=== PATIENT | male | born 1950 | race Caucasian/White ===

== ENCOUNTER 2019-09-13 16:11 | Inpatient (IN) | payer OTHER, SELFPAY ==
[2019-09-13] VITALS (12 sets, daily range): BP systolic 118–155; BP diastolic 69–116; PULSE 94–117; RESP 18–31; TEMP 36.4–37; O2SAT 91–100; BMI 29.0; BMI 28.2
--- NOTE | 2019-09-13 16:57 | EKG12_ITS ---
Test Reason : SOB Blood Pressure : / mmHG Vent. Rate : 115 BPM Atrial Rate : 127 BPM P-R Int : 000 ms QRS Dur : 104 ms QT Int : 300 ms P-R-T Axes : 000 -29 127 degrees QTc Int : 415 ms Atrial fibrillation with premature ventricular or aberrantly conducted complexes Nonspecific ST and T wave abnormality Abnormal ECG Confirmed by DOROTA VARGAS, FELISHA ([id number]), deputy editor in chief BENITO HOOD ([id number]) on 09/16/2019 3:53:26 PM Referred By: TELLY Confirmed By:FELISHA RAYA MD
[2019-09-13 17:24] LABS: Anion Gap 8 (5-15); BUN 34 mg/dL (7-18); BUN/Creat Ratio 20.5 RATIO (10-20); Calcium,Total 9.4 mg/dL (8.5-10.1); Chloride 108 mmol/L (98-107); Creatinine, Serum 1.66 mg/dL (0.70-1.30); EST Glomerular Filtration Rate 44 mL/min (>60); Est Glom Filt Rate - Afr Amer 53 mL/min (>60); Estimated Creatinine Clearance 43.98 ml/min; Glucose 136 mg/dL (74-106); Sodium Level 140 mmol/L (136-145)
[2019-09-13 17:25] LABS: Absolute Lymphocyte Count 1.29 X10^3/uL (0.83-4.51); Absolute Neutrophil Count 11.4 X10^3/uL (2.0-7.7); Basophil# 0.03 X10^3/uL; Basophil% 0.2 % (0-1); Eosinophil# 0.01 X10^3/uL; Eosinophils% 0.1 % (0-5); Hematocrit 43.5 % (40-54); Hemoglobin 13.9 g/dL (13.0-16.5); Lymphocyte # 1.29 X10^3/ul (4.0); Lymphocyte % 9.3 % (19-41); Mean Corpuscular Hgb 30.9 pg (27.0-32.0); Mean Corpuscular Volume 96.7 fL (80-94); Mean Platelet Vol. 11.5 fl (6.2-12.0); Monocyte# 0.96 X10^3/uL; NRBC Flagged by Analyzer 0 % (0-5); Neutrophil # 11.44 X10^3/uL (2.7-7.7); Neutrophil % 82.9 % (47-70); Platelet Count 273 K/mm3 (150-450); RBC Distribution Width CV 14.4 % (11.6-14.6); RBC Distribution Width SD 51.4 fl (35.1-43.9); White Blood Count 13.8 K/mm3 (4.4-11.0)
--- NOTE | 2019-09-13 17:25 | RAD_ITS ---
STUDY: X-RAY CHEST REASON FOR EXAM: Male, 68 years old. SOB for 12 weeks TECHNIQUE: Single AP portable view of the chest on 2 images. COMPARISON: None. FINDINGS: The lungs are under expanded. There is ill-defined density at the bases and loss of definition of the diaphragms, likely a combination of volume loss/atelectasis and very small pleural effusions. Infection is difficult to exclude. There is mild cardiac enlargement. Normal mediastinum. Normal visualized upper lobe pulmonary arteries. Normal visualized aortic arch and descending thoracic aorta. There are multilevel degenerative changes of the visualized thoracic spine. Normal visualized ribs, clavicles, and shoulders. There is no demonstrated abnormality of the visualized soft tissue structures of the upper abdomen. RAD/Chest 1 View (Portable) IMPRESSION: 1. X-ray examination of the chest degraded by poor inspiratory effort with crowding. 2. Subsegmental airspace disease and small pleural effusions at the bilateral lung bases. Infection not excluded. 3. Mild cardiac enlargement. The upper lobe pulmonary vasculature is normal, but the basilar pulmonary vascular markings are difficult to evaluate. Electronically Signed: Justin Ludwig MD at 17:41 EDT , Service support ,
--- NOTE | 2019-09-13 17:42 | ED.RN ---
REMAINS AT BEDSIDE, PT HAS DIFFICULTY MAKING SELF UNDERSTOOD, DIFFICULTY FORMING WORDS. INTERPRETS.
[2019-09-13 17:50] LABS: BNP,B-Type NATRIURETIC PEPTIDE 898.6 pg/mL (0-100)
--- NOTE | 2019-09-13 17:55 | ED.DCSUM_ITS ---
- ER Visit Summary Date of Service: 09/13/19 Chief Complaint: Shortness of breath History of Present Illness: The patient is a 68 M presenting with shortness of breath. states this has been ongoing for the past couple of weeks but worsened significantly on Friday. He has had shortness of breath with exertion. He denies chest pain. He has a mild cough. He denies fever. states he has had difficulty sleeping due to his shortness of breath. He was seen by his primary care physician today and advised to come to the ED. He also complains of increasing lower extremity swelling. He has a history of diabetes and hypercholesterolemia. He is not a smoker. Physical Examination: Vitals are stable. Patient is afebrile. Alert no acute distress. HEENT exam is unremarkable. Neck is supple. Lungs are diminished bilaterally. Heart is irregularly irregular Abdomen is soft nontender nondistended. Extremities symmetric edema Skin is warm and dry. No focal neurologic deficit. Remainder of exam is unremarkable. Emergency Department Course and Treatment: EKG is A. fib rate of 115. CBC shows a white count of 13.8. Chemistry shows glucose 136, BUN 34, creatinine 1.66. Troponin 0.241. BNP 898. Patient was given aspirin, Cardizem. He remains chest pain-free in the ED. Discussed with Dr. Conrad and the hospitalist for admission. Disposition: Admission Impression: New onset CHF, new onset A. fib This note was generated with [employer] dictation software. It may contain incorrect words, spelling, and punctuation that were not noted in review of the chart prior to signing ED Disposition - Plan for ED Patient: Referrals: Terence Joyce DO [Primary Care Provider] -
[2019-09-13] MEDS: Aspirin 325 MG Tablet PO (18:07)
[2019-09-13] MEDS: dilTIAZem 25 MG/5 ML Vial 10 MG IV BOLUS (18:07)
--- NOTE | 2019-09-13 18:30 | ECHOD_ITS ---
Reason For Study: CHF Procedure This was a 2D Doppler, Color Flow transthoracic echocardiogram. Exam performed portable in patient room. Left Ventricle Mildly dilated left ventricle. The estimated ejection fraction is 15 %. Unable to assess diastolic dysfunction due to arrhythmia. There is severe global hypokinesis of the left ventricle. Right Ventricle Normal RV size. Normal systolic function. Atria The left atrium is moderately enlarged. The right atrium is mildly enlarged. Mitral Valve Normal mitral valve. Mild (1+) eccentric mitral valve insufficiency. Tricuspid Valve Normal tricuspid valve. Moderate (2+) tricuspid valve insufficiency. Pulmonary artery systolic pressure is 65 mmHg. Moderate pulmonary hypertension. Aortic Valve Trisinus/trileaflet aortic valve. Mild focal aortic valve calcification. Peak aortic valve gradient 23 mmHg. Mean aortic valve gradient 14 mmHg. Mild to moderate aortic stenosis. Mild (1+) eccentric aortic valve insufficiency. Pulmonic Valve Normal pulmonic valve. Mild (1+) pulmonic valve insufficiency. Great Vessels Normal aortic root. The pulmonary artery is normal size. Inferior vena cava collapse with respiration. Pericardium/Pleural No pericardial effusion. Small left pleural effusion. MMode/2D Measurements & Calculations LVIDd: 5.8 cm IVSd: 0.95 cm LVOT diam: 2.0 cm LVIDs: 5.2 cm LVPWd: 0.88 cm LVOT area: 3.1 cm2 RVDd: 3.3 cm FS: 10.1 % Ao root diam: 3.6 cm LAV(MOD-bp): 98.4 ml LVAd ap4: 40.4 cm2 LAV(MOD-bp) Indexed: 46.9 ml/m2 EDV(MOD-sp4): 136.5 ml LAV(MOD-sp2): 121.2 ml EDV(sp4-el): 142.4 ml LAV(MOD-sp4): 74.0 ml LVAs ap4: 34.3 cm2 ESV(MOD-sp4): 103.8 ml ESV(sp4-el): 109.2 ml EF(MOD-sp4): 23.9 % EF(sp4-el): 23.3 % SV(MOD-sp4): 32.7 ml SV(sp4-el): 33.2 ml LA A4 area: 25.0 cm2 LA dimension(2D): 5.7 cm RA A4 area: 21.6 cm2 Doppler Measurements & Calculations MV E max lee: 135.6 cm/sec Ao V2 max: 236.8 cm/sec LV V1 max: 73.0 cm/sec Ao max P.9 mmHg LV V1 max P.2 mmHg Ao V2 mean: 179.6 cm/sec LV V1 mean P.1 mmHg Ao mean P.2 mmHg LV V1 mean: 49.4 cm/sec Ao V2 VTI: 35.1 cm LV V1 VTI: 11.2 cm FELISHA(I,D): 0.98 cm2 FELISHA(V,D): 0.95 cm2 SV(LVOT): 34.5 ml PA V2 max: 119.6 cm/sec PI end-d lee: 148.6 cm/sec TR max lee: 390.7 cm/sec TR max P.2 mmHg Interpretation Summary Mildly dilated left ventricle. The estimated ejection fraction is 15 %. There is severe global hypokinesis of the left ventricle. The left atrium is moderately enlarged. Mean aortic valve gradient 14 mmHg. Moderate pulmonary hypertension. Unable to assess diastolic dysfunction due to arrhythmia. Ordering Physician: Chi Conrad Referring Physician: MANISH SUTTON Performed By: Patricia Tobar, PATRICA, RVT
--- NOTE | 2019-09-13 18:32 | HP.PCM_ITS ---
History of Present Illness Date of Admission: 09/13/19 Chief Complaint: Shortness of breath, lower extremity swelling. The patient is a 68 year old M with a past medical history of diabetes and high cholesterol. He was admitted through the ED on 09/13/2019 with a complaint of shortness of breath and lower extremity edema for the past few days prior to admission. He had associated orthopnea and PND but denied any chest pain, nausea vomiting or diarrhea. Shortness of breath worsened with exertion. He has not had such symptoms in the past. He denied any fever chills or cough. Review of symptoms otherwise negative. On admission in the ED, heart rate was initially 117 but came down to 97. Vitals were otherwise stable. He was saturating at 97% on 2 L of oxygen. Chemistry showed creatinine of 1.66 with initial troponin of 0.241 and BNP of 898.6. CBC showed white cell count of 13.8 and hemoglobin of 13.9 with platelets of 273. Chest x-ray showed segmental airspace disease and small pleural effusions at the bilateral lung bases with mild cardiac enlargement. EKG done on admission showed A. fib with RVR. He has been admitted to be managed for acute heart failure of unknown EF and A. fib with RVR. [] Past Medical History Allergies No Known Allergies Allergy (Verified 09/13/19 16:12) Home Medications: Ambulatory Orders Medication Instructions Recorded Metformin HCl [Glucophage] 500 mg PO DAILY 09/13/19 Pravastatin [Pravachol] 40 mg PO DAILY 09/13/19 Surgical History: no surgical history Psychiatric History: No pertinent psych hx Lives: Spouse/ Significant Other Smoking Status: Never smoker Alcohol: None Drugs: None - *Family History Maternal History Items: No pertinent history Paternal History Items: No pertinent history Review of Systems Constitutional: Denies: Anorexia, Chills, Fever, Malaise, Weakness Eyes: Denies: Blurred vision HEENT: Denies: Head Aches, Sinus Congestion, Sinus Drainage Cardiovascular: Reports: Edema, Orthopnea, Paroxysmal Noc. Dyspnea. Denies: Chest Pain, Chest Tightness, Heaviness, Light Headedness, Palpitations, Syncope Respiratory: Reports: Shortness of Breath, Shortness of breath at rest, Shortness of breath upon exertion. Denies: Cough, Sputum production, Wheezing Gastrointestinal: Denies: Abdominal Pain, Nausea, Vomiting Genitourinary: Denies: Dysuria Musculoskeletal: Denies: Joint Pain, Joint Tenderness Skin: Denies: Rash, Wounds Neurological: Denies: Numbness, Tingling, Focal weakness Psychiatric: Denies: Anxiety, Depression, Homicidal Ideations, Suicidal Ideations Hematologic/ Lymphatic: Denies: Easy Bruising, Easy Bleeding VTE Information - Inpt Only VTE Present on Admission: No VTE Pharm Prophylaxis ordered?: Yes - Physical Exam Vitals/I&O's: Vital Signs Temp Pulse Resp BP Pulse Ox 97.8 F 97 18 131/109 H 97 09/13/19 18:09 09/13/19 18:09 09/13/19 18:09 09/13/19 18:27 09/13/19 18:09 Oxygen Flow Rate (L/min) 2 Oxygen Delivery Method Nasal Cannula Weight: 202 lb 2.622 oz Body Mass Index (BMI) 29.0 General: Alert, Oriented x3, Cooperative, - - flat affect HEENT: Atraumatic, PERRLA, EOMI, Normocephalic Oral: Dry Mucosa Neck: Supple, No JVD, Negative Carotid Bruits Lungs: - - decreased breath sounds bibasally, no wheezes or crackles. on 2L of oxygen by nasal canula Cardiovascular: Normal S1, Normal S2, Irregular Rate - AFib Abdomen: Bowel Sounds Present, Soft, Non Tender Extremities: No clubbing, No cyanosis, Edema - +2 LE pitting edema bilaterally Skin: No rashes, No breakdown Musculoskeletal: No Tenderness to Palpation of Joints or Extremities Lymphatic: No Cervical, Supraclavicular, or Inguinal Adenopathy Neurological: Cranial nerves II-XII grossly intact, Neuro grossly intact, Motor Exam 5/5 strength throughout Psych/Mental Status: Normal Affect, Appropriate, Alert and oriented to time, place, person, mood and affect Laboratory Results 09/13/19 16:55: WBC 13.8 H, RBC 4.50 L, Hgb 13.9, Hct 43.5, MCV 96.7 H, MCH 30.9, MCHC 32.0, RDW Std Deviation 51.4 H, RDW Coeff of Jamshid 14.4, Plt Count 273, MPV 11.5, Immature Gran % (Auto) 0.500, Neut % (Auto) 82.9 H, Lymph % (Auto) 9.3 L, [place] % (Auto) 7.0, Eos % (Auto) 0.1, Baso % (Auto) 0.2, Absolute Neuts (auto) 11.4 H, Absolute Lymphs (auto) 1.29, Nucleated RBC % 0 09/13/19 16:55: Sodium 140, Potassium 4.0, Chloride 108 H, Carbon Dioxide 24.0, Anion Gap 8, BUN 34 H, Creatinine 1.66 H, Estim Creat Clear Calc 43.98, Est GFR (MDRD) Af Amer 53 L, Est GFR (MDRD) Non-Af 44 L, BUN/Creatinine Ratio 20.5 H, Glucose 136 H, Calcium 9.4, Troponin I 0.241 H 09/13/19 16:55: B-Natriuretic Peptide 898.6 H Diagnostic Data Chest X-Ray 09/13/19 17:25 IMPRESSION: 1. X-ray examination of the chest degraded by poor inspiratory effort with crowding. 2. Subsegmental airspace disease and small pleural effusions at the bilateral lung bases. Infection not excluded. 3. Mild cardiac enlargement. The upper lobe pulmonary vasculature is normal, but the basilar pulmonary vascular markings are difficult to evaluate. Electronically Signed: Justin Ludwig MD at 17:41 EDT , Service support , Assessment/Plan 68-year-old male admitted with a complaint of shortness of breath and lower extremity swelling. 1. Acute heart failure of unknown EF * BNP is 89 8. * Admit to PCU with telemetry. * Start on IV lasix drip, per discussion with cardiology. Monitor intake and output. Fluid restriction 2500 cc daily. 2D echo ordered and pending. Will check TSH. * Cardiology consulted. * 2. Afib with RVR * Heart rate on admission was 117 but at time of review heart rate was down in the 90s. * Will give a dose of therapeutic dose of Lovenox. * [id number] score is ~ 3 * cardiology consulted; Start Coreg 3.125mg bid 3. Elevated troponins * Short troponin 0 0.241. Could be due to troponin leak from heart failure as well. * We will cycle troponins times 2 more * Sublingual nitroglycerin as needed. P.o. aspirin 81 mg daily. * Cardiology consulted. * 4. Acute hypoxic respiratory insufficiency * On 2 L of oxygen by nasal cannula. Titrate oxygen to maintain saturation above 90%. * 5.IVY: Cr is 1.66. No baseline available. WIll trend Cr 5. Diabetes mellitus: Hold metformin. ISS. Accuchecks ACHS. 6. Hyperlipidemia: on statin DVT prophylaxis; lovenox Code status: full code * Patient counseled extensively about different types of CODE STATUS including full code, DNR CCA and DNR CCA. Patient elects to be full code. Total [id number] time 16 minutes. Inpatient E&M: 99654 Init Hosp L3 Procedures: 54730 Advncd Care Plan 30 Min
--- NOTE | 2019-09-13 18:33 | CON.PCM_ITS ---
Reason for Consult Date of Consultation: 09/13/19 Reason for Consultation: Shortness of breath History of Present Illness: The patient is a 68 year old M with a previous history of diabetes mellitus and hypercholesterolemia who presented to the emergency room today. He has been complaining of shortness of breath which has been going on over the last few weeks. He is also noted pedal edema and inability to lie down flat when he goes to bed. He cannot say for sure whether he has had any weight gain. He however categorically denies any chest pain, or neck arm or jaw discomfort suggest angina. He also is not sure whether he has had some palpitations but occasionally he does feel an irregular heartbeat. In the emergency room he was evaluated and noted to be in atrial fibrillation with a rapid ventricular response rate after the EKG was faxed to me. He has had no dizziness or diaphoresis no near syncope or syncope. He has been compliant with his medications. [] Past Medical History Allergies/Adverse Reactions: Allergies No Known Allergies Allergy (Verified 09/13/19 16:12) Home Medications: Ambulatory Orders Medication Instructions Recorded Metformin HCl [Glucophage] 500 mg PO DAILY 09/13/19 Pravastatin [Pravachol] 40 mg PO DAILY 09/13/19 Surgical History: no surgical history Smoking Status: Never smoker Alcohol: None Drugs: None Review of Systems - Review of Systems General: Denies: Fever, Night Sweats, Fatigue HEENT: Denies: Vision Change Cardiovascular: Reports: Shortness of Breath, Orthopnea, PND, Peripheral Edema. Denies: Chest Discomfort, Palpitations, Lightheadedness, Dizziness, Near Syncope, Syncope Respiratory: Reports: Cough. Denies: Sputum Production, Hemoptysis Gastrointestinal: Denies: Hematemesis, Hematochezia, Melena Genitourinary: Denies: Dysuria, Hematuria Muscoloskeletal: Denies: Myalgias Skin: Denies: Rash Neurological: Denies: Dizziness Psychiatric: Denies: Anxiety Endocrine: Denies: Unexplained Weight Loss Hematologic/ Lymphatic: Denies: Anemia Subjectve: Pleasant gentleman in mild respiratory distress Objective: Vital Signs Temp Pulse Resp BP Pulse Ox 97.8 F 97 18 131/109 H 97 09/13/19 18:09 09/13/19 18:09 09/13/19 18:09 09/13/19 18:27 09/13/19 18:09 Oxygen Flow Rate (L/min) 2 Oxygen Delivery Method Nasal Cannula Weight: 202 lb 2.622 oz Body Mass Index (BMI) 29.0 General: Awake, Alert, Oriented x 3 HEENT: PERRL, EOMI, Sclera Non Icteric Neck: Supple, Good ROM, No Lymph Node Enlargement Lungs: Diminished Germain Bases Cardiovascular: Irregular Rhythm, Normal S1, Normal S2, No Murmurs, No Rubs, No Gallops Vascular: No Carotid Bruits, Normal Femoral Pulses, Normal Radial Pulses, Normal Dorsalis Pedal Pulse, Normal Posterior Tibial Pulses Abdomen: Bowel Sounds Present, Soft, Non Tender, No HSM, No Organomegaly Extremities: No Cyanosis, No Clubbing, Bilateral Edema +2 Musculoskeletal: No Erythema Skin: No Rashes Lymphatic: No Lymph Node Enlargement Neurological: No Focal Motor or Sensory Deficit Psych/Mental Status: Appropriate 09/13/19 16:55: WBC 13.8 H, RBC 4.50 L, Hgb 13.9, Hct 43.5, MCV 96.7 H, MCH 30.9, MCHC 32.0, Plt Count 273, MPV 11.5, Immature Gran % (Auto) 0.500, Neut % (Auto) 82.9 H, Lymph % (Auto) 9.3 L, [place] % (Auto) 7.0, Eos % (Auto) 0.1, Baso % (Auto) 0.2, Absolute Neuts (auto) 11.4 H, Nucleated RBC % 0 09/13/19 16:55: Sodium 140, Potassium 4.0, Chloride 108 H, Carbon Dioxide 24.0, Anion Gap 8, BUN 34 H, Creatinine 1.66 H, Est GFR (MDRD) Af Amer 53 L, Est GFR (MDRD) Non-Af 44 L, BUN/Creatinine Ratio 20.5 H, Glucose 136 H, Calcium 9.4, Troponin I 0.241 H 09/13/19 16:55: B-Natriuretic Peptide 898.6 H Rhythm: EKG: Atrial fibrillation with a controlled ventricular response rate and occasional premature ventricular complexes ECHO: Stress Test: Cardiac Cath: PCI: CT Surgery: Holter monitor: EPS: PPM: CXR: Chest CT Scan: Assessment/Plan 1. Acute on chronic congestive heart failure * Patient presents with an initial episode of congestive heart failure but this appears to have been going on for a while. The above is likely secondary to systolic dysfunction. The etiology may be related to coronary disease or tachycardia induced cardiomyopathy. * Would recommend diuresis with intravenous Lasix as a continuous drip * Rate control with carvedilol 3.125 mg twice a day and titrate upwards as appropriate * Daily Lovenox anticoagulation * Echocardiogram to assess left ventricular function * Depending on the results of these tests further recommendations will be made. * 2. Atrial fibrillation with uncontrolled ventricular response rate * The duration of the above is not entirely clear * Will anticoagulate with Lovenox initially * Rate control with beta-bryn * 3. Abnormal cardiac enzymes * Patient has evidence of abnormal cardiac enzymes. This may represent underlying coronary artery disease. * Would continue to evaluate for cardiac enzyme profile * Aspirin to be initiated * Continue high intensity statin * Thank you for allowing me to participate in the care of your patient. Please don't hesitate to call if any issues arise.
[2019-09-13 20:09] LABS: Magnesium 2.4 mg/dL (1.6-2.6)
[2019-09-13] MEDS: Enoxaparin 100 MG/ML Syringe 90 MG SC (20:37)
[2019-09-13] MEDS: 0.9% Saline Lock 10 ML Syringe IV (20:37)
[2019-09-13] MEDS: Pravastatin 40 MG Tablet PO (22:40)
[2019-09-14] VITALS (9 sets, daily range): BP systolic 111–124; BP diastolic 70–83; PULSE 63–120; RESP 16–20; TEMP 36.8–37.3; O2SAT 94–99
[2019-09-14 05:26] LABS: Absolute Lymphocyte Count 1.67 X10^3/uL (0.83-4.51); Absolute Neutrophil Count 8.4 X10^3/uL (2.0-7.7); Basophil# 0.03 X10^3/uL; Basophil% 0.3 % (0-1); Eosinophil# 0.09 X10^3/uL; Eosinophils% 0.8 % (0-5); Hematocrit 41.3 % (40-54); Hemoglobin 13.6 g/dL (13.0-16.5); Lymphocyte # 1.67 X10^3/ul (4.0); Mean Corp Hgb Conc 32.9 g/dL (32-36); Mean Corpuscular Hgb 31.3 pg (27.0-32.0); Mean Corpuscular Volume 94.9 fL (80-94); Mean Platelet Vol. 11.2 fl (6.2-12.0); Monocyte# 0.89 X10^3/uL; NRBC Flagged by Analyzer 0 % (0-5); Neutrophil % 75.5 % (47-70); Platelet Count 246 K/mm3 (150-450); RBC Distribution Width CV 14.3 % (11.6-14.6); RBC Distribution Width SD 49.6 fl (35.1-43.9); Red Blood Count 4.35 M/mm3 (4.6-6.2); White Blood Count 11.1 K/mm3 (4.4-11.0)
[2019-09-14 05:46] LABS: Anion Gap 8 (5-15); BUN 33 mg/dL (7-18); BUN/Creat Ratio 21.3 RATIO (10-20); Calcium,Total 9.3 mg/dL (8.5-10.1); Chloride 105 mmol/L (98-107); Creatinine, Serum 1.55 mg/dL (0.70-1.30); EST Glomerular Filtration Rate 48 mL/min (>60); Est Glom Filt Rate - Afr Amer 58 mL/min (>60); Glucose 118 mg/dL (74-106); Potassium 3.6 mmol/L (3.5-5.1); Sodium Level 139 mmol/L (136-145)
[2019-09-14 06:41] LABS: Bedside Glucose 172 mg/dL (70-110)
[2019-09-14] MEDS: Insulin Lispro 100 UNIT/ML INSULN.PEN SC ×3 (06:45→21:12)
--- NOTE | 2019-09-14 08:17 | PN.CARD_ITS ---
Subjectve: Patient seen and evaluated. He appears to be doing better this morning. Is making urine. Objective: Vital Signs Temp Pulse Resp BP Pulse Ox 98.2 F 102 H 18 121/70 H 99 09/14/19 03:25 09/14/19 07:01 09/14/19 03:25 09/14/19 03:25 09/14/19 03:30 Oxygen Flow Rate (L/min) 2 Oxygen Delivery Method Nasal Cannula Weight: 190 lb 11.198 oz Body Mass Index (BMI) 28.2 Intake and Output for Last 24 Hours 09/12/19 09/13/19 09/14/19 23:59 23:59 23:59 Intake Total 120 / 120 Output Total 200 / 200 2750 / 2750 Balance -80 / -80 -2750 / -2750 General: Awake, Alert, Oriented x 3 HEENT: PERRL, EOMI, Sclera Non Icteric Neck: Supple, Good ROM, No Lymph Node Enlargement Lungs: Diminished Germain Bases Cardiovascular: Regular Rhythm, Normal S1, Normal S2, No Murmurs, No Rubs, No Gallops Vascular: No Carotid Bruits, Normal Femoral Pulses, Normal Radial Pulses, Normal Dorsalis Pedal Pulse, Normal Posterior Tibial Pulses Abdomen: Bowel Sounds Present, Soft, Non Tender, No HSM, No Organomegaly Extremities: No Cyanosis, No Clubbing, Bilateral Edema +1 Musculoskeletal: No Erythema Skin: No Rashes Lymphatic: No Lymph Node Enlargement Neurological: No Focal Motor or Sensory Deficit Psych/Mental Status: Appropriate 09/13/19 16:55: WBC 13.8 H, RBC 4.50 L, Hgb 13.9, Hct 43.5, MCV 96.7 H, MCH 30.9, MCHC 32.0, Plt Count 273, MPV 11.5, Immature Gran % (Auto) 0.500, Neut % (Auto) 82.9 H, Lymph % (Auto) 9.3 L, [place] % (Auto) 7.0, Eos % (Auto) 0.1, Baso % (Auto) 0.2, Absolute Neuts (auto) 11.4 H, Nucleated RBC % 0 09/13/19 16:55: Sodium 140, Potassium 4.0, Chloride 108 H, Carbon Dioxide 24.0, Anion Gap 8, BUN 34 H, Creatinine 1.66 H, Est GFR (MDRD) Af Amer 53 L, Est GFR (MDRD) Non-Af 44 L, BUN/Creatinine Ratio 20.5 H, Glucose 136 H, Calcium 9.4, Troponin I 0.241 H 09/13/19 16:55: B-Natriuretic Peptide 898.6 H 09/13/19 16:55: Magnesium 2.4 09/13/19 20:15: Troponin I 0.229 H 09/13/19 23:07: Troponin I 0.233 H 09/14/19 05:06: WBC 11.1 H, RBC 4.35 L, Hgb 13.6, Hct 41.3, MCV 94.9 H, MCH 31.3, MCHC 32.9, Plt Count 246, MPV 11.2, Immature Gran % (Auto) 0.400, Neut % (Auto) 75.5 H, Lymph % (Auto) 15.0 L, [place] % (Auto) 8.0, Eos % (Auto) 0.8, Baso % (Auto) 0.3, Absolute Neuts (auto) 8.4 H, Nucleated RBC % 0 09/14/19 05:06: Sodium 139, Potassium 3.6, Chloride 105, Carbon Dioxide 26.0, Anion Gap 8, BUN 33 H, Creatinine 1.55 H, Est GFR (MDRD) Af Amer 58 L, Est GFR (MDRD) Non-Af 48 L, BUN/Creatinine Ratio 21.3 H, Glucose 118 H, Calcium 9.3, Troponin I 0.153 H Rhythm: EKG: ECHO: Stress Test: Cardiac Cath: PCI: CT Surgery: Holter monitor: EPS: PPM: CXR: Chest CT Scan: Medical Necessity - Tobacco Use Smoking Status: Never smoker Assessment/Plan 1. Acute on chronic congestive heart failure * Patient presents with an initial episode of congestive heart failure but this appears to have been going on for a while. The above is likely secondary to systolic dysfunction. The etiology may be related to coronary disease or tachycardia induced cardiomyopathy. * Would recommend diuresis with intravenous Lasix as a continuous drip. Patient appears to have achieved negative fluid balance * Rate control with carvedilol 3.125 mg twice a day and titrate upwards as appropriate * Daily Lovenox anticoagulation * Echocardiogram to assess left ventricular function which is pending * Depending on the results of these tests further recommendations will be made. * 2. Atrial fibrillation with uncontrolled ventricular response rate * The duration of the above is not entirely clear * Will anticoagulate with Lovenox initially * Rate control with beta-bryn * 3. Abnormal cardiac enzymes * Patient has evidence of abnormal cardiac enzymes. This may represent underlying coronary artery disease. * Would continue to evaluate for cardiac enzyme profile * Aspirin to be initiated * Continue high intensity statin * Thank you for allowing me to participate in the care of your patient. Please don't hesitate to call if any issues arise.
[2019-09-14] MEDS: Carvedilol 6.25 MG Tablet PO ×2 (09:56→21:04)
--- NOTE | 2019-09-14 10:25 | CASEMGMT ---
BATSHEVA VEGA Face to Face with patient for initial transition planning/care coordination assessment. BATSHVEA VEGA introduced self and role at [facility]. Patient lying in bed, alert and oriented. Patient willing to participate in assessment and is able to answer all questions appropriately. Care providers, pharmacy, and demographics verified. Patient wishes to discharge home, denies need for home health at this time. Patient states he has no further needs or concerns at this time. CM to follow for discharge planning needs that may arise. PCP: [facility] Specialists: Preferred Pharmacy: [facility] Insurance: [employer] Prescription Benefit: none Living Will/HPOA: none LNOK: Living Arrangements: Patient lives with in 2 story home with bed and bath on first floor. 2 steps to enter the home with railing. Patient states he is independent at home. Transportation: buggy or haul driver DME/HHC: Patient states that he has a cane and walker that he does not use. Patient denies previous HHC or SNF. Patient currently on oxygen, will monitor for home oxygen. Patient states he does not have electricity at home. BATSHEVA VEGA explained liquid oxygen and cost associated with liquid oxygen. Disposition Plan: Patient to discharge home with family support and follow-up plans in place. Will monitor for home oxygen. Kirstie BROWNE, RN, CM
[2019-09-14 11:46] LABS: Bedside Glucose 139 mg/dL (70-110)
--- NOTE | 2019-09-14 14:04 | PN_ITS ---
Subjective: Seen and examined. He feels much better today and shortness of breath has improved. He denies any lightheadedness or dizziness, palpitations, nausea vomiting or diarrhea. Review of symptoms otherwise negative. He remains on Lasix drip. Urine output so far today is 5.7 L. Vitals/I&O's: Vital Signs Temp Pulse Resp BP Pulse Ox 99.1 F 106 H 16 123/77 H 97 09/14/19 09:25 09/14/19 09:25 09/14/19 09:25 09/14/19 09:25 09/14/19 09:25 Oxygen Flow Rate (L/min) 2 Oxygen Delivery Method Nasal Cannula Weight: 190 lb 11.198 oz Body Mass Index (BMI) 28.2 Intake and Output for Last 24 Hours 09/12/19 09/13/19 09/14/19 23:59 23:59 23:59 Intake Total 120 / 120 120 / 120 Output Total 200 / 200 5700 / 5700 Balance -80 / -80 -5580 / -5580 General: Alert, Oriented x3, Cooperative, HEENT: Atraumatic, PERRLA, EOMI, Normocephalic Oral: Dry Mucosa Neck: Supple, No JVD, Negative Carotid Bruits Lungs: - - decreased breath sounds bibasally, no wheezes or crackles. on 2L of oxygen by nasal canula Cardiovascular: Normal S1, Normal S2, Irregular Rate - AFib Abdomen: Bowel Sounds Present, Soft, Non Tender Extremities: No clubbing, No cyanosis, Edema - +2 LE pitting edema bilaterally Skin: No rashes, No breakdown Musculoskeletal: No Tenderness to Palpation of Joints or Extremities Lymphatic: No Cervical, Supraclavicular, or Inguinal Adenopathy Neurological: Cranial nerves II-XII grossly intact, Neuro grossly intact, Motor Exam 5/5 strength throughout Psych/Mental Status: Normal Affect, Appropriate, Alert and oriented to time, place, person, mood and affect Laboratory Results 09/13/19 16:55: WBC 13.8 H, RBC 4.50 L, Hgb 13.9, Hct 43.5, MCV 96.7 H, MCH 30.9, MCHC 32.0, RDW Std Deviation 51.4 H, RDW Coeff of Jamshid 14.4, Plt Count 273, MPV 11.5, Immature Gran % (Auto) 0.500, Neut % (Auto) 82.9 H, Lymph % (Auto) 9.3 L, [place] % (Auto) 7.0, Eos % (Auto) 0.1, Baso % (Auto) 0.2, Absolute Neuts (auto) 11.4 H, Absolute Lymphs (auto) 1.29, Nucleated RBC % 0 09/13/19 16:55: Sodium 140, Potassium 4.0, Chloride 108 H, Carbon Dioxide 24.0, Anion Gap 8, BUN 34 H, Creatinine 1.66 H, Estim Creat Clear Calc 43.98, Est GFR (MDRD) Af Amer 53 L, Est GFR (MDRD) Non-Af 44 L, BUN/Creatinine Ratio 20.5 H, Glucose 136 H, Calcium 9.4, Troponin I 0.241 H 09/13/19 16:55: B-Natriuretic Peptide 898.6 H 09/13/19 16:55: Magnesium 2.4 09/13/19 20:15: Troponin I 0.229 H 09/13/19 23:07: Troponin I 0.233 H 09/14/19 05:06: WBC 11.1 H, RBC 4.35 L, Hgb 13.6, Hct 41.3, MCV 94.9 H, MCH 31.3, MCHC 32.9, RDW Std Deviation 49.6 H, RDW Coeff of Jamshid 14.3, Plt Count 246, MPV 11.2, Immature Gran % (Auto) 0.400, Neut % (Auto) 75.5 H, Lymph % (Auto) 15.0 L, [place] % (Auto) 8.0, Eos % (Auto) 0.8, Baso % (Auto) 0.3, Absolute Neuts (auto) 8.4 H, Absolute Lymphs (auto) 1.67, Nucleated RBC % 0 09/14/19 05:06: Sodium 139, Potassium 3.6, Chloride 105, Carbon Dioxide 26.0, Anion Gap 8, BUN 33 H, Creatinine 1.55 H, Estim Creat Clear Calc 47.10, Est GFR (MDRD) Af Amer 58 L, Est GFR (MDRD) Non-Af 48 L, BUN/Creatinine Ratio 21.3 H, Glucose 118 H, Calcium 9.3, Troponin I 0.153 H 09/14/19 06:38: POC Glucose 172 H 09/14/19 11:33: POC Glucose 139 H Diagnostic Data Chest X-Ray 09/13/19 17:25 IMPRESSION: 1. X-ray examination of the chest degraded by poor inspiratory effort with crowding. 2. Subsegmental airspace disease and small pleural effusions at the bilateral lung bases. Infection not excluded. 3. Mild cardiac enlargement. The upper lobe pulmonary vasculature is normal, but the basilar pulmonary vascular markings are difficult to evaluate. Electronically Signed: Justin Ludwig MD at 17:41 EDT , Service support , Current Medications Carvedilol (Coreg) 6.25 mg PO BID [facility] Last Admin: 09/14/19 09:56 Dose: 6.25 mg Documented by: Dextrose (D50w Syringe) 0 gm IV X1 PRN; Protocol PRN Reason: Hypoglycemia Glucagon () 1 mg IM .X1 PRN PRN Reason: Hypoglycemia Furosemide 500 mg/ (Miscellaneous Information) 50 mls @ 1 mls/hr CONT INF .Q50H [facility] Last Admin: 09/13/19 20:40 Dose: 10 mg/hr, 1 mls/hr Documented by: Sodium Chloride () 250 mls @ 15 mls/hr IV .[id number] PRN PRN Reason: Saline Flush Sodium Chloride () 250 mls @ 15 mls/hr IV .[id number] PRN PRN Reason: Additional IVPB Infusion Insulin Human Lispro (Humalog Kwikpen (Bkc)) 0 unit SC ACHS [facility]; Protocol Last Admin: 09/14/19 11:40 Dose: Not Given Documented by: Nitroglycerin (Nitrostat) 0.4 mg SUBLINGUAL Q5M PRN PRN Reason: CARDIAC/CHEST PAIN Ondansetron HCl (Zofran) 4 mg IV Q8H PRN PRN PRN Reason: NAUSEA/VOMITING Pravastatin Sodium (Pravachol) 40 mg PO QHS [facility] Last Admin: 09/13/19 22:40 Dose: 40 mg Documented by: Sodium Chloride () 10 - 40 ml IV UD PRN PRN Reason: SALINE FLUSH Last Admin: 09/13/19 20:37 Dose: 10 ml Documented by: Medical Necessity - Tobacco Use Smoking Status: Never smoker Assessment/Plan 68-year-old male admitted with a complaint of shortness of breath and lower extremity swelling. 1. Acute heart failure with reduced EF * 2D echo showed EF of 15% and unable to assess diastolic dysfunction due to arrhythmia with severe global hypokinesis of the left ventricle and moderately enlarged left atrium. Pulmonary artery systolic pressure is 65 mmHg. Also had mild to moderate aortic stenosis. * Only on IV Lasix drip. Urine output so far is 5.9 L. * TSH was within normal limits. On carvedilol 3.125 mg twice daily. * Cardiology on board. * ulted. * 2. Afib with RVR * On carvedilol 3.125 mg twice daily. Heart rate control has improved. * On therapeutic Lovenox. 3. Elevated troponins * Initial troponin was 0.241 and trended down to 0.153 eventually. * Cardiology on board. Sublingual nitroglycerin and p.o. aspirin 81 mg daily. * Will likely benefit from cardiac cath once shortness of breath improves. * * 4. Acute hypoxic respiratory insufficiency * Due to heart failure, A. fib with RVR and pulmonary hypertension. * On 2 L of oxygen by nasal cannula. Titrate oxygen to maintain saturation above 90%. * 5.IVY: Cr is 1.55 No baseline available. WIll trend Cr 5. Diabetes mellitus: Hold metformin. ISS. Accuchecks ACHS. 6. Hyperlipidemia: on statin DVT prophylaxis; lovenox therapeutic dose Code status: full code * Inpatient E&M: 93467 Subs Hosp L3
[2019-09-14] MEDS: Enoxaparin 100 MG/ML Syringe 90 MG SC ×2 (14:52→23:40)
[2019-09-14 17:05] LABS: Bedside Glucose 227 mg/dL (70-110)
[2019-09-14] MEDS: Atorvastatin Calcium 40 MG Tablet PO (21:04)
[2019-09-14 21:40] LABS: Bedside Glucose 202 mg/dL (70-110)
[2019-09-15] VITALS (14 sets, daily range): BP systolic 91–118; BP diastolic 49–87; PULSE 60–106; RESP 16–18; TEMP 36.7–36.9; O2SAT 95–100
[2019-09-15 05:43] LABS: Absolute Lymphocyte Count 1.92 X10^3/uL (0.83-4.51); Absolute Neutrophil Count 10.8 X10^3/uL (2.0-7.7); Basophil# 0.04 X10^3/uL; Basophil% 0.3 % (0-1); Eosinophil# 0.13 X10^3/uL; Eosinophils% 0.9 % (0-5); Hematocrit 47.3 % (40-54); Hemoglobin 15.4 g/dL (13.0-16.5); Lymphocyte # 1.92 X10^3/ul (4.0); Lymphocyte % 13.7 % (19-41); Mean Corp Hgb Conc 32.6 g/dL (32-36); Mean Corpuscular Hgb 30.7 pg (27.0-32.0); Mean Corpuscular Volume 94.2 fL (80-94); Mean Platelet Vol. 11.2 fl (6.2-12.0); Monocyte# 1.08 X10^3/uL; Monocyte% 7.7 % (0-10); NRBC Flagged by Analyzer 0 % (0-5); Neutrophil # 10.82 X10^3/uL (2.7-7.7); Neutrophil % 77.2 % (47-70); Platelet Count 234 K/mm3 (150-450); RBC Distribution Width CV 14.1 % (11.6-14.6); RBC Distribution Width SD 48.7 fl (35.1-43.9); Red Blood Count 5.02 M/mm3 (4.6-6.2)
[2019-09-15 05:57] LABS: Anion Gap 9 (5-15); BUN 47 mg/dL (7-18); BUN/Creat Ratio 26.7 RATIO (10-20); Calcium,Total 9.1 mg/dL (8.5-10.1); Chloride 101 mmol/L (98-107); Creatinine, Serum 1.76 mg/dL (0.70-1.30); EST Glomerular Filtration Rate 41 mL/min (>60); Est Glom Filt Rate - Afr Amer 50 mL/min (>60); Estimated Creatinine Clearance 41.48 ml/min; Glucose 131 mg/dL (74-106); Potassium 3.1 mmol/L (3.5-5.1); Sodium Level 141 mmol/L (136-145)
--- NOTE | 2019-09-15 06:03 | NUR.TO.PHY ---
of patient, Day Laurent, wants doctor to call her today with updates. She is very upset that she has not heard from the doctor regarding her 's condition. As per , is not capable of relaying doctor's messages to . Day Piersonr [phone]
--- NOTE | 2019-09-15 06:19 | NURSING ---
Patient's , Day, called this nurse this morning and was upset that doctor had not called to update her. She would like called today. [phone]
[2019-09-15 06:46] LABS: Bedside Glucose 142 mg/dL (70-110)
--- NOTE | 2019-09-15 08:31 | PN.CARD_ITS ---
Subjectve: Patient seen and evaluated. Appears to be doing much better this morning. Objective: Vital Signs Temp Pulse Resp BP Pulse Ox 98.0 F 92 18 97/58 L 98 09/15/19 03:00 09/15/19 07:01 09/15/19 03:00 09/15/19 03:00 09/15/19 03:00 Oxygen Flow Rate (L/min) 2 Oxygen Delivery Method Room Air Weight: 177 lb 11.081 oz Body Mass Index (BMI) 28.2 Intake and Output for Last 24 Hours 09/13/19 09/14/19 09/15/19 23:59 23:59 23:59 Intake Total 120 / 120 800 / 800 77.47 / 77.47 Output Total 200 / 200 9400 / 9400 1000 / 1000 Balance -80 / -80 -8600 / -8600 -922.53 / -922.53 General: Awake, Alert, Oriented x 3 HEENT: PERRL, EOMI, Sclera Non Icteric Neck: Supple, Good ROM, No Lymph Node Enlargement Lungs: Clear to auscultation Cardiovascular: Irregular Rhythm, Normal S1, Normal S2, No Murmurs, No Rubs, No Gallops Vascular: No Carotid Bruits, Normal Femoral Pulses, Normal Radial Pulses, Normal Dorsalis Pedal Pulse, Normal Posterior Tibial Pulses Abdomen: Bowel Sounds Present, Soft, Non Tender, No HSM, No Organomegaly Extremities: No Cyanosis, No Clubbing, No edema Musculoskeletal: No Erythema Skin: No Rashes Neurological: No Focal Motor or Sensory Deficit 09/15/19 05:28: WBC 14.0 H, RBC 5.02, Hgb 15.4, Hct 47.3, MCV 94.2 H, MCH 30.7, MCHC 32.6, Plt Count 234, MPV 11.2, Immature Gran % (Auto) 0.200, Neut % (Auto) 77.2 H, Lymph % (Auto) 13.7 L, [place] % (Auto) 7.7, Eos % (Auto) 0.9, Baso % (Auto) 0.3, Absolute Neuts (auto) 10.8 H, Nucleated RBC % 0 09/15/19 05:28: Sodium 141, Potassium 3.1 L, Chloride 101, Carbon Dioxide 31.0, Anion Gap 9, BUN 47 H, Creatinine 1.76 H, Est GFR (MDRD) Af Amer 50 L, Est GFR (MDRD) Non-Af 41 L, BUN/Creatinine Ratio 26.7 H, Glucose 131 H, Calcium 9.1 Rhythm: EKG: ECHO: Stress Test: Cardiac Cath: PCI: CT Surgery: Holter monitor: EPS: PPM: CXR: Chest CT Scan: Medical Necessity - Tobacco Use Smoking Status: Never smoker Assessment/Plan 1. Acute on chronic congestive heart failure * Patient presents with an initial episode of congestive heart failure but this appears to have been going on for a while. The above is likely secondary to systolic dysfunction. The etiology may be related to coronary disease or tachycardia induced cardiomyopathy. * Would recommend diuresis with intravenous Lasix as a continuous drip. This can be discontinued and switched to p.o. Lasix patient appears to have achie latha negative fluid balance * Rate control with carvedilol which has been increased to 6.25 mg twice a day. * Daily Lovenox anticoagulation * Echocardiogram to assess left ventricular function demonstrated that the ejection fraction was approximately 15%. * I would recommend that the patient undergo a left heart catheterization to exclude obstructive coronary disease. . 2. Atrial fibrillation with uncontrolled ventricular response rate * The duration of the above is not entirely clear * Will anticoagulate with Lovenox initially, and switch over to Eliquis at discharge. * Rate control with beta-bryn * 3. Abnormal cardiac enzymes * Patient has evidence of abnormal cardiac enzymes. This may represent underlying coronary artery disease. * Would continue to evaluate for cardiac enzyme profile * Aspirin to be initiated * Continue high intensity statin * Thank you for allowing me to participate in the care of your patient. Please don't hesitate to call if any issues arise. * * The family is insistent that he has to attend a wedding tomorrow so if we can perform a left heart catheterization today. I spoke to the family at length. We will try and see whether we can oblige later today. I am hesitant to send him home on anticoagulation and have to stop it and restart it. * Addendum: Cardiac catheterization performed demonstrated 40% left main coronary artery lesion. Mild LAD disease, Mild left circumflex disease, Dominant large circumflex artery with no significant stenosis. Mild aortic stenosis. Based on the above angiographic findings we will continue with the above determined plan.
[2019-09-15] MEDS: Furosemide 40 MG Tablet PO ×2 (09:05→16:56)
[2019-09-15] MEDS: 0.9% Saline Lock 10 ML Syringe IV (09:05)
[2019-09-15] MEDS: Carvedilol 6.25 MG Tablet PO (09:05)
[2019-09-15] MEDS: 0.9% Normal Saline 1,000 ML 15 ML IV (12:01)
[2019-09-15 12:11] LABS: Bedside Glucose 142 mg/dL (70-110)
--- NOTE | 2019-09-15 12:36 | NURSING ---
Called report to Jackie HERMAN in [employer]
--- NOTE | 2019-09-15 14:40 | PCM.DC ---
- Discharge Diagnoses Current Active Problems: Current Active and Chronic Problems New onset atrial fibrillation (Acute 09/13/19) Non-STEMI (non-ST elevated myocardial infarction) (Acute 09/13/19) Nonrheumatic aortic (valve) stenosis with insufficiency (Acute) Secondary pulmonary arterial hypertension (Acute) Dilated cardiomyopathy (Acute) Acute systolic (congestive) heart failure (Acute) You will use the following diet at home:: Cardiac Your food should be the consistency of: Regular Your liquids should be the consistency of: Regular/Thin Discharge Activity: Return to Normal Activity Weight Bearing Status: Weight bearing as tolerated Call your doctor if you observe: Shortness of breath, Dizziness, Fainting spells, Swelling in the ankles, Chest pain, Increased palpitations (irregular heartbeat) Instructions: Atrial Fibrillation, What Is Atrial Flutter/Atrial Fibrillation?, Heart Failure: Evaluating Your Heart, Heart Failure: Making Changes to Your Diet Additional Instructions: to have repeat BMP in one week to assess potassium level Allergies/Adverse Reactions: Allergies No Known Allergies Allergy (Verified 09/13/19 16:12) Medications to take at Discharge Metformin HCl [Glucophage] 500 mg PO DAILY 09/13/19 Pravastatin [Pravachol] 40 mg PO DAILY 09/13/19 Apixaban [Eliquis] 2.5 mg PO BID #60 tab 09/15/19 Carvedilol [Coreg (Beta Maggie)] 6.25 mg PO BID #60 tab 09/15/19 Furosemide [Lasix] 40 mg PO BID@1000,1800 #60 tab 09/15/19 Potassium Chloride [K-Dur] 20 meq PO BID #60 tab 09/15/19 The following prescriptions were given: Carvedilol [Coreg (Beta Maggie)] 6.25 mg PO BID #60 tab Transmission Status: [facility] Apixaban [Eliquis] 2.5 mg PO BID #60 tab Transmission Status: Pending to [id number] Potassium Chloride [K-Dur] 20 meq PO BID #60 tab Transmission Status: Pending to [id number] Furosemide [Lasix] 40 mg PO BID@1000,1800 #60 tab Transmission Status: Sent to [facility] Primary Care Physician: Terence Joyce DO [Primary Care Provider] - Please follow up with your Primary Care Physician in: 1 week Test Results: Test results from this visit will be discussed in further detail at your follow-up appointment, if applicable. Please Follow Up With: Chi Conrad MD When: 1-2 weeks Proposed Discharge Date: 09/15/19
--- NOTE | 2019-09-15 14:48 | DS.PCM_ITS ---
Discharge Date and Diagnosis - Problem List Patient Problems: Active and Suspected Problems New onset atrial fibrillation (Acute 09/13/19) Non-STEMI (non-ST elevated myocardial infarction) (Acute 09/13/19) Nonrheumatic aortic (valve) stenosis with insufficiency (Acute) Secondary pulmonary arterial hypertension (Acute) Dilated cardiomyopathy (Acute) Acute systolic (congestive) heart failure (Acute) Date of Admission: 09/13/19 Date of Discharge: 09/15/19 - Primary Discharge Diagnosis Acute Problems: Active Problems New onset atrial fibrillation (Acute 09/13/19) Non-STEMI (non-ST elevated myocardial infarction) (Acute 09/13/19) Nonrheumatic aortic (valve) stenosis with insufficiency (Acute) Secondary pulmonary arterial hypertension (Acute) Dilated cardiomyopathy (Acute) Acute systolic (congestive) heart failure (Acute) Hospital Course and Treatment Imaging Results: Diagnostic Data Chest X-Ray 09/13/19 17:25 IMPRESSION: 1. X-ray examination of the chest degraded by poor inspiratory effort with crowding. 2. Subsegmental airspace disease and small pleural effusions at the bilateral lung bases. Infection not excluded. 3. Mild cardiac enlargement. The upper lobe pulmonary vasculature is normal, but the basilar pulmonary vascular markings are difficult to evaluate. Electronically Signed: Justin Ludwig MD at 17:41 EDT , Service support , Interpretation Summary Mildly dilated left ventricle. The estimated ejection fraction is 15 %. There is severe global hypokinesis of the left ventricle. The left atrium is moderately enlarged. Mean aortic valve gradient 14 mmHg. Moderate pulmonary hypertension. Unable to assess diastolic dysfunction due to arrhythmia. cardiology- Dr Conrad Operations: None Procedures: 2-D Echocardiogram, Cardiac catheterization Summary of Care Provided: The patient is a 68 year old M with a past medical history of diabetes and high cholesterol. He was admitted through the ED on 09/13/2019 with a complaint of shortness of breath and lower extremity edema for the past few days prior to admission. He had associated orthopnea and PND but denied any chest pain, nausea vomiting or diarrhea. Shortness of breath worsened with exertion. He has not had such symptoms in the past. He denied any fever chills or cough. Review of symptoms otherwise negative. On admission in the ED, heart rate was initially 117 but came down to 97. Vitals were otherwise stable. He was saturating at 97% on 2 L of oxygen. Chemistry showed creatinine of 1.66 with initial troponin of 0.241 and BNP of 898.6. CBC showed white cell count of 13.8 and hemoglobin of 13.9 with platelets of 273. Chest x-ray showed segmental airspace disease and small pleural effusions at the bilateral lung bases with mild cardiac enlargement. EKG done on admission showed A. fib with RVR. He was admitted to be managed for acute heart failure of unknown EF and A. fib with RVR. He was started on IV lasix drip, and started on PO carvedilol. He was also anticoagulated with SC lovenox. Cardiology was consulted. 2D echo showed EF of 15%, with mildly dilated left ventricle and mild to moderate aortic stenosis with RVSP of 65 mmHg. Patient shortness of breath improved with administration of Lasix. Patient had a cardiac cath on 09/15/2019 which showed mild left anterior descending artery disease with mild left circumflex disease and dominant large circumflex artery with no significant stenosis and mild aortic stenosis. Patient remained stable and symptoms improved significantly. Family wanted patient to be discharged on 09/15/2019 as they wanted him to be at a family wedding on 09/16/2019. Patient remained stable and was discharged home on 09/15/2019 with a prescription for p.o. Lasix 40 mg twice daily, p.o. potassium 20 mEq twice daily, p.o. Eliquis 2.5 mg twice daily and p.o. carvedilol 6.25 mg twice daily. He is to follow-up with his primary care doctor cardiology within 1 week he is to have a follow-up BMP within 1 week. Patient seen and examined prior to discharge. He had no complaints. Shortness of breath had improved. Review systems otherwise negative. Labs and vitals reviewed. Home medications reviewed and reconciled. o/e: Vital Signs Temp Pulse Resp BP Pulse Ox 98.4 F 100 16 118/69 98 09/15/19 12:00 09/15/19 15:00 09/15/19 15:00 09/15/19 15:09/15/19 15:00 General: Alert, Oriented x3, Cooperative, HEENT: Atraumatic, PERRLA, EOMI, Normocephalic Oral: Dry Mucosa Neck: Supple, No JVD, Negative Carotid Bruits Lungs: - - decreased breath sounds bibasally, no wheezes or crackles. on room air. Cardiovascular: Normal S1, Normal S2, Irregular Rate - AFib Abdomen: Bowel Sounds Present, Soft, Non Tender Extremities: No clubbing, No cyanosis, Edema - +1 LE pitting edema bilaterally Skin: No rashes, No breakdown Musculoskeletal: No Tenderness to Palpation of Joints or Extremities Lymphatic: No Cervical, Supraclavicular, or Inguinal Adenopathy Neurological: Cranial nerves II-XII grossly intact, Neuro grossly intact, Motor Exam 5/5 strength throughout Psych/Mental Status: Normal Affect, Appropriate, Alert and oriented to time, place, person, mood and affect Plan is for dc home today as above. Patient Problems: Active and Suspected Problems New onset atrial fibrillation (Acute 09/13/19) Non-STEMI (non-ST elevated myocardial infarction) (Acute 09/13/19) Nonrheumatic aortic (valve) stenosis with insufficiency (Acute) Secondary pulmonary arterial hypertension (Acute) Dilated cardiomyopathy (Acute) Acute systolic (congestive) heart failure (Acute) - Physical Exam Vitals/I&O's: Vital Signs Temp Pulse Resp BP Pulse Ox 98.4 F 99 16 112/70 97 09/15/19 12:00 09/15/19 14:45 09/15/19 14:45 09/15/19 14:45 09/15/19 14:45 Oxygen Flow Rate (L/min) 2 Oxygen Delivery Method Room Air Weight: 177 lb 11.081 oz Body Mass Index (BMI) 28.2 Intake and Output for Last 24 Hours 09/13/19 09/14/19 09/15/19 23:59 23:59 23:59 Intake Total 120 / 120 800 / 800 587.22 / 587.22 Output Total 200 / 200 9400 / 9400 2625 / 2625 Balance -80 / -80 -8600 / -8600 -2036.78 / -2036.78 Laboratory Results 09/14/19 17:02: POC Glucose 227 H 09/14/19 21:11: POC Glucose 202 H 09/15/19 05:28: WBC 14.0 H, RBC 5.02, Hgb 15.4, Hct 47.3, MCV 94.2 H, MCH 30.7, MCHC 32.6, RDW Std Deviation 48.7 H, RDW Coeff of Jamshid 14.1, Plt Count 234, MPV 11.2, Immature Gran % (Auto) 0.200, Neut % (Auto) 77.2 H, Lymph % (Auto) 13.7 L, [place] % (Auto) 7.7, Eos % (Auto) 0.9, Baso % (Auto) 0.3, Absolute Neuts (auto) 10.8 H, Absolute Lymphs (auto) 1.92, Nucleated RBC % 0 09/15/19 05:28: Sodium 141, Potassium 3.1 L, Chloride 101, Carbon Dioxide 31.0, Anion Gap 9, BUN 47 H, Creatinine 1.76 H, Estim Creat Clear Calc 41.48, Est GFR (MDRD) Af Amer 50 L, Est GFR (MDRD) Non-Af 41 L, BUN/Creatinine Ratio 26.7 H, Glucose 131 H, Calcium 9.1 09/15/19 06:40: POC Glucose 142 H 09/15/19 12:00: POC Glucose 142 H Diagnostic Data Chest X-Ray 09/13/19 17:25 IMPRESSION: 1. X-ray examination of the chest degraded by poor inspiratory effort with crowding. 2. Subsegmental airspace disease and small pleural effusions at the bilateral lung bases. Infection not excluded. 3. Mild cardiac enlargement. The upper lobe pulmonary vasculature is normal, but the basilar pulmonary vascular markings are difficult to evaluate. Electronically Signed: Justin Ludwig MD at 17:41 EDT , Service support , Current Medications Atorvastatin Calcium (Lipitor) 40 mg PO QHS [facility] Last Admin: 09/14/19 21:04 Dose: 40 mg Documented by: Carvedilol (Coreg) 6.25 mg PO BID [facility] Last Admin: 09/15/19 09:05 Dose: 6.25 mg Documented by: Dextrose (D50w Syringe) 0 gm IV X1 PRN; Protocol PRN Reason: Hypoglycemia Enoxaparin Sodium (Lovenox) 90 mg SC Q12 [facility] Last Admin: 09/15/19 09:08 Dose: Not Given Documented by: Furosemide (Lasix) 40 mg PO BID@1000,1800 [facility] Last Admin: 09/15/19 09:05 Dose: 40 mg Documented by: Glucagon () 1 mg IM .X1 PRN PRN Reason: Hypoglycemia Sodium Chloride () 250 mls @ 15 mls/hr IV .[id number] PRN PRN Reason: Saline Flush Sodium Chloride () 250 mls @ 15 mls/hr IV .[id number] PRN PRN Reason: Additional IVPB Infusion Sodium Chloride () 1,000 mls @ 0 mls/hr IV .Q0M [facility] Last Infusion: 09/15/19 14:00 Dose: Infused Documented by: Insulin Human Lispro (Humalog Kwikpen (Bkc)) 0 unit SC ACHS [facility]; Protocol Last Admin: 09/15/19 12:02 Dose: Not Given Documented by: Nitroglycerin (Nitrostat) 0.4 mg SUBLINGUAL Q5M PRN PRN Reason: CARDIAC/CHEST PAIN Ondansetron HCl (Zofran) 4 mg IV Q8H PRN PRN PRN Reason: NAUSEA/VOMITING Sodium Chloride () 10 - 40 ml IV UD PRN PRN Reason: SALINE FLUSH Last Admin: 09/15/19 09:05 Dose: 10 ml Documented by: Discharge Activity: Return to Normal Activity Weight Bearing Status: Weight bearing as tolerated Call your doctor if you observe: Shortness of breath, Dizziness, Fainting spells, Swelling in the ankles, Chest pain, Increased palpitations (irregular heartbeat) Home Medications: Medications to take at Discharge Metformin HCl [Glucophage] 500 mg PO DAILY 09/13/19 Pravastatin [Pravachol] 40 mg PO DAILY 09/13/19 Apixaban [Eliquis] 2.5 mg PO BID #60 tab 09/15/19 Carvedilol [Coreg (Beta Maggie)] 6.25 mg PO BID #60 tab 09/15/19 Furosemide [Lasix] 40 mg PO BID@1000,1800 #60 tab 09/15/19 Potassium Chloride [K-Dur] 20 meq PO BID #60 tab 09/15/19 Following Prescrptions Were Given to Patient: Carvedilol [Coreg (Beta Maggie)] 6.25 mg PO BID #60 tab Transmission Status: Sent to [id number] Apixaban [Eliquis] 2.5 mg PO BID #60 tab Transmission Status: Pending to [facility] 2914 Potassium Chloride [K-Dur] 20 meq PO BID #60 tab Transmission Status: Pending to [facility] 2914 Furosemide [Lasix] 40 mg PO BID@1000,1800 #60 tab Transmission Status: Sent to [facility]14 Primary Care Physician: Terence Joyce DO [Primary Care Provider] - Please follow up with your Primary Care Physician in: 1 week Please Follow Up With: Chi Conrad MD When: 1-2 weeks Patient Instructions: What Is Atrial Flutter/Atrial Fibrillation?, Heart Failure: Making Changes to Your Diet, Heart Failure: Evaluating Your Heart, Atrial Fibrillation Disposition: Home Minutes spent on discharge:: 45 Patient Condition:: Stable Medical Necessity - Tobacco Use Smoking Status: Never smoker Meaningful Use Info Meaningful Use Diagnoses (Choose all that apply): CHF - CHF BENJAMIN/ARB ordered at discharge?: No Reason BENJAMIN/ARB not ordered?: Worsening renal disease Documented LVEF (%): 15 Inpatient E&M: 49551 Disch Hosp
--- NOTE | 2019-09-15 14:50 | CASEMGMT ---
BATSHEVA VEAG NOTE: Discharge order is in. Pt will be going home on Eliquis which has been e-scribed to [facility]. Call placed to [facility] and 30-day savings card applied. Pt will have no cost for 1st 30-days. After that, cost will be $563.48. Pt made aware of this and also provided with RX savings card and prescription hope information w/contact #. Pt is to have an appt w/Dr Conrad in 1-2 weeks. Call placed to Megan @ [facility]. She was made aware pt has Delvin Aide/no prescription benefits, that he is being discharged home on Eliquis, that he has been given the 30-day savings card, but that he will need assistance/follow-up with cost of refills or having medication changed to something more affordable. Megan states they will assist pt when he comes in at the follow-up appt. BATSHEVA Bruce, made aware of the above. She is attempting to contact pt's to inform her of pt's discharge and states will review this information with as well. Janis states she will inform of need of appt w/Dr Conrad in 1-2 weeks and that [facility] will assist w/help with cost of Eliquis or discuss orther affordable options. Carl BROWNE RN, CM
--- NOTE | 2019-09-15 17:57 | CL.D_ITS ---
Patient Name: RAJIV WORTHY Study Date: 09/15/2019 Performing: Chi Conrad MD Ht: 70 inches 178 cm : 1950 Wt: 178.8 lbs 81 kg Age: 68 Gender: male BSA: 1.99 PROCEDURE(S) PERFORMED CY73-VBB/COR CLINICAL PROFILE AND INDICATIONS Indications: Cardiomyopathy Heart Failure: NYHA Class: 3, Newly Diagnosed: Yes, Heart Failure Type: Systolic Stress/Imaging Stress/Image Study Performed: No CAD Presentations: No Sxs, no angina. CONCLUSIONS Non obstructive coronary arteries Cardiomyopathy: Dilated Cardiomyopathy: Congestive Aortic Valve Stenosis- Mild RECOMMENDATIONS Medical therapy DESCRIPTION OF PROCEDURE The patient arrived to the procedure lab. The risks and benefits of the procedure as well as a full d escription of our services here and current unavailability of surgical backup were fully explained to the patient and/or their significant other prior to the catheterization. The Timeout was completed, verifying the correct patient and procedure. The patient's procedural site was prepped and draped in the usual fashion. Local anesthetic was given subcutaneously to right radial region with Lidocaine 2% . Using a modified Seldinger technique, arterial access was obtained via the right radial artery, a 6 Fr sheath was inserted. Left Coronary Artery selective angiography was performed in multiple views u sing a 5 Fr. 4.0 [place] catheter. Right Coronary Artery selective angiography was then performed in mu ltiple views using a 5 Fr. JR 5 catheter. LV to AO pullback pressures were then recorded.The arterial sheath was pulled and a TR Band was applied for hemostasis 12cc air inserted CORONARY ANGIOGRAPHY DOMINANCE: Right Dominant LEFT HEART ASSESSMENT Left Ventricular Ejection Fraction: by Echo 15 % Global Hypokinesis - Severe Depressed Left Ventricular systolic function LEFT MAIN: Mild calcification, 30 % Stenosis LEFT ANTERIOR DESCENDING ARTERY: Moderate luminal irregularities up to 50% CIRCUMFLEX ARTERY: Mild luminal irregularities RIGHT CORONARY ARTERY: No significant disease noted VALVE FINDINGS: Aortic Valve Stenosis - mild COMPLICATIONS No Complications PROCEDURE MEDICATIONS Fentanyl 50 mcg IV Versed 1 mg IV Oxygen: 2 L/min via nasal cannula Heparin diluted in 23cc Heparinized saline. Patient given 10cc IA of this solution. 09/15/2019 13:25: 28 Verapamil 2.5mg, Ntg 100mcgs, 2000 units of Heparin diluted in 23cc Heparinized saline. Patient give n 10cc IA of this solution. 09/15/2019 13:25:28 SUMMARY OF HEMODYNAMIC DATA Time AIR REST ECG 13:11:25 AO 92/64 (78) SA 13:27:48 LV 89/3, 5 13:40:41 LV 92/5, 8 13:40:46 LVp 101/6, 8 13:40:56 AOp 93/60 (75) 13:41:01 Signed By Chi Conrad MD On 09/15/2019 17:56:12 Chi Conrad MD
== END 2019-09-15 17:07 | disposition home or self-care (01) | DRG 280 ==
LOC: ED 18:13 → PCU 18:37
PROVIDERS: Admitting Provider Student in an Organized Health Care Education/Training Program; Emergency Provider Emergency Medicine; PCP Family Medicine; Visit Provider Student in an Organized Health Care Education/Training Program
DX: I21.4 Non-ST elevation (NSTEMI) myocardial infarction (principal); I50.23 Acute on chronic systolic (congestive) heart failure; I42.0 Dilated cardiomyopathy; I35.2 Nonrheumatic aortic (valve) stenosis with insufficiency; I27.21 Secondary pulmonary arterial hypertension; I48.91 Unspecified atrial fibrillation; E11.9 Type 2 diabetes mellitus without complications; R09.02 Hypoxemia; E78.5 Hyperlipidemia, unspecified
CPT/HCPCS: 36415; 71045; 80048; 82962; 83735; 83880; 84484; 85025; 93005; 93306; 93454; 96374; 97161; 97166; 99152; 99153; 99285; J7030; A4216; C1769; C1894; J1940; Q9967

== ENCOUNTER → 2019-10-15 10:28 | Outpatient (CLI) | payer OTHER, SELFPAY ==
[2019-10-15 09:38] VITALS: BMI 25.7
[2019-10-15 11:17] LABS: Absolute Lymphocyte Count 1.29 X10^3/uL (0.83-4.51); Absolute Neutrophil Count 4.3 X10^3/uL (2.0-7.7); Basophil# 0.01 X10^3/uL; Basophil% 0.2 % (0-1); Eosinophil# 0.03 X10^3/uL; Eosinophils% 0.5 % (0-5); Hematocrit 46.7 % (40-54); Hemoglobin 15.1 g/dL (13.0-16.5); Lymphocyte # 1.29 X10^3/ul (4.0); Lymphocyte % 20.3 % (19-41); Mean Corp Hgb Conc 32.3 g/dL (32-36); Mean Corpuscular Hgb 30.8 pg (27.0-32.0); Mean Corpuscular Volume 95.1 fL (80-94); Mean Platelet Vol. 11.6 fl (6.2-12.0); Monocyte# 0.74 X10^3/uL; Monocyte% 11.6 % (0-10); NRBC Flagged by Analyzer 0 % (0-5); Neutrophil # 4.28 X10^3/uL (2.7-7.7); Neutrophil % 67.1 % (47-70); Platelet Count 157 K/mm3 (150-450); RBC Distribution Width CV 13.3 % (11.6-14.6); RBC Distribution Width SD 46.2 fl (35.1-43.9); Red Blood Count 4.91 M/mm3 (4.6-6.2); White Blood Count 6.4 K/mm3 (4.4-11.0)
[2019-10-15 11:52] LABS: Anion Gap 9 (5-15); BUN 57 mg/dL (7-18); BUN/Creat Ratio 27.9 RATIO (10-20); Calcium,Total 9.4 mg/dL (8.5-10.1); Chloride 103 mmol/L (98-107); Creatinine, Serum 2.04 mg/dL (0.70-1.30); EST Glomerular Filtration Rate 35 mL/min (>60); Est Glom Filt Rate - Afr Amer 42 mL/min (>60); Glucose 143 mg/dL (74-106); Potassium 4.2 mmol/L (3.5-5.1); Sodium Level 139 mmol/L (136-145)
== END ==
PROVIDERS: PCP Family Medicine; Referring Provider Physician Assistant Medical; Visit Provider Physician Assistant Medical
DX: I42.8 Other cardiomyopathies (principal); I48.91 Unspecified atrial fibrillation
CPT/HCPCS: 36415; 80048; 85025

== ENCOUNTER → 2019-12-17 12:12 | Outpatient (CLI) | payer SELFPAY, OTHER ==
[2019-12-09 09:57] VITALS: BMI 25.9
--- NOTE | 2019-12-17 12:12 | CDU_ITS ---
Reason For Study: BRUIT Rt. Velocities/BP Lt. Velocities/BP Prox CCA 46/15 cm/sec. Prox CCA 62/13 cm/sec. Mid CCA 54/13 cm/sec. Mid CCA 76/20 cm/sec. Dist CCA 57/13 cm/sec. Dist CCA 64/15 cm/sec. Prox ICA 39/14 cm/sec. Prox ICA 50/18 cm/sec. Mid ICA 51/23 cm/sec. Mid ICA 79/22 cm/sec. Dist ICA 66/26 cm/sec. Dist ICA 97/32 cm/sec. Rt. ICA/CCA = 1.2. Lt. ICA/CCA = 1.5. Prox ECA 71/15 cm/sec. Prox ECA 71/13 cm/sec. Rt. Vert. 43/13 cm/sec. Lt. Vert. 29/11 cm/sec. Right Extracranial There is homogeneous, smooth atherosclerotic plaque noted in the right common carotid artery. There is homogeneous, smooth atherosclerotic plaque noted in the right internal carotid artery. There is homogeneous, smooth atherosclerotic plaque noted in the right external carotid artery. Antegrade flow is noted in the right vertebral artery. Left Extracranial There is homogeneous, smooth atherosclerotic plaque noted in the left common carotid artery. There is homogeneous, smooth atherosclerotic plaque noted in the left internal carotid artery. There is homogeneous, smooth atherosclerotic plaque noted in the left external carotid artery. Antegrade flow is noted in the left vertebral artery. Procedure Carotid Duplex 75776. Exam performed in department. Interpretation Summary Minimal smooth plaque at the proximal right internal carotid artery with less than 50% stenosis <50% stenosis right external carotid Minimal smooth plaque at the proximal left internal carotid artery with less than 50% stenosis <50% stenosis left external carotid Patent and antegrade vertebrals bilaterally Ordering Physician: Lucy Johnson Referring Physician: MANISH SUTTON Performed By: Patricia Tobar, RDCS, RVT
--- NOTE | 2019-12-17 12:12 | ECHOL_ITS ---
Reason For Study: CHF Procedure This was a limited 2D transthoracic echocardiogram. Exam performed in department. Left Ventricle Normal LV size. Moderately severe global left ventricular systolic dysfunction. The estimated ejection fraction is 20 %. Right Ventricle Normal RV size. Normal systolic function. Atria The left atrium is mildly enlarged. The right atrium is mildly enlarged. Mitral Valve Normal mitral valve. Tricuspid Valve Normal tricuspid valve. Mild (1+) tricuspid valve insufficiency. Pulmonary artery systolic pressure is 38 mmHg. Aortic Valve Trisinus/trileaflet aortic valve. Mild focal aortic valve calcification. Mild (1+) aortic valve insufficiency. Pulmonic Valve Normal pulmonic valve. Great Vessels Normal aortic root. The pulmonary artery is normal size. Normal inferior vena cava. Pericardium/Pleural No pericardial effusion. MMode/2D Measurements & Calculations LVIDd: 5.1 cm IVSd: 1.4 cm LVOT diam: 2.0 cm LVIDs: 4.4 cm LVPWd: 1.2 cm LVOT area: 3.2 cm2 FS: 12.8 % Ao root diam: 3.6 cm LAV(MOD-bp): 78.1 ml LVAd ap4: 38.3 cm2 LAV(MOD-bp) Indexed: 41.9 ml/m2 EDV(MOD-sp4): 144.6 ml LAV(MOD-sp2): 84.1 ml EDV(sp4-el): 148.1 ml LAV(MOD-sp4): 71.4 ml LVAs ap4: 32.2 cm2 ESV(MOD-sp4): 104.5 ml ESV(sp4-el): 108.9 ml EF(MOD-sp4): 27.8 % EF(sp4-el): 26.5 % SV(MOD-sp4): 40.1 ml SV(sp4-el): 39.2 ml Aortic Valve Planimetry: 1.5 cm2 LA A4 area: 23.4 cm2 RA A4 area: 21.0 cm2 Doppler Measurements & Calculations Ao V2 max: 240.7 cm/sec LV V1 max: 85.5 cm/sec SV(LVOT): 56.9 ml Ao max P.3 mmHg LV V1 max P.9 mmHg Ao V2 mean: 158.1 cm/sec LV V1 mean P.7 mmHg Ao mean P.0 mmHg LV V1 mean: 59.8 cm/sec Ao V2 VTI: 43.5 cm LV V1 VTI: 17.8 cm FELISHA(I,D): 1.3 cm2 FELISHA(V,D): 1.1 cm2 PA V2 max: 117.6 cm/sec PI end-d lee: 132.7 cm/sec TR max lee: 295.6 cm/sec TR max P.9 mmHg Interpretation Summary Normal LV size. Moderately severe global left ventricular systolic dysfunction. The estimated ejection fraction is 20 %. compared to the previous the EF is minimally improved, the pulmonary pressures are improved. Ordering Physician: Lucy Johnson Referring Physician: Terence Joyce Performed By: Madi Story RCS
== END ==
PROVIDERS: PCP Family Medicine; Referring Provider Physician Assistant Medical; Visit Provider Physician Assistant Medical
DX: I42.8 Other cardiomyopathies (principal); R09.89 Other specified symptoms and signs involving the circulatory and respiratory systems
CPT/HCPCS: 93308; 93880

== ENCOUNTER → 2022-06-24 | Outpatient (CLI) | payer OTHER, SELFPAY ==
--- NOTE | 2022-06-24 | IMM_PTH ---
PATIENT: RAJIV WORTHY LOC: [facility] U#:[id number] AGE/SX: 71/M ROOM: RE06/24/[address]: Dr. Hilario Parikh MD : 1950 BED: DIS: 06/24/2022 SPEC #: [id number] RECD: 06/26/22 13:38 STATUS: CINDY REQ #: [id number] ALBA: 06/24/22 00:[address]: Hilario Parikh DEPT: IMMUNOHISTOCHEMISTRY RECD BY: Nany Jenkins ENTERED: 06/26/22 13:38 SP TYPE: IMMUNO OTHR DR: Dr. Terence Joyce, Tissues: E - PROSTATE LEFT F - PROSTATE LEFT Procedures: 34BE12 (add) P40 (add) 34BE12 (initial) PHYSICIAN & INSTITUTION [place] [id number] SPECIMEN INFORMATION: Tissue Source: E - Left prostate, mid, core biopsy, F - Left prostate, base, core biopsy Clinical Info: Elevated PSA Specimen Number: [id number] E & F CPT code: 82168, 43649 x3 METHODOLOGY: Deparaffinized sections of prefer/formalin-fixed tissue or PAP/DQ stained slides are incubated with monoclonal/polyclonal antibodies/oligonucleotide probes. Localization is made via biotin free immunoperoxidase method. Appropriate controls are performed and reacted as expected. Results on target cell population are indicated in the following table: RESULTS: ANTIBODY / CLONE RESULT Block E P40 (BC28) positive 34BE12 (34BE12) positive Block F P40 (BC28) noncontributory 34BE12 (34BE12) noncontributory These tests were developed and their performance characteristics determined by [facility]. They may not have been cleared or approved by the U.S. Food and Drug Administration. The FDA has determined that such clearance or approval is not necessary. The above immunohistochemical/dualISH markers are ordered and reviewed by the Pathologist. INTERPRETATION: E. Left prostate, mid, core biopsy: Focal high-grade prostatic intraepithelial neoplasia (HGPIN). F. Left prostate, base, core biopsy: Focal high-grade prostatic intraepithelial neoplasia (HGPIN). See comment. GEMA:bridget 06/27/2022 Comment: B - IHC is noncontributory as area of HGPIN is not present in the IHC slides. Case has been reviewed in consultation with Dr. Her who concurs with the above diagnosis. IDC:AM
--- NOTE | 2022-06-24 | PROSBIL_PTH ---
PATIENT: RAJIV WORTHY LOC: [facility] U#:[id number] AGE/SX: 71/M ROOM: RE06/24/[address]: Dr. Hilario Parikh MD : 1950 BED: DIS: 06/24/2022 SPEC #: [id number] RECD: 06/24/22 15:00 STATUS: CINDY BARBA #: [id number] ALBA: 06/24/22 00:[address]: Hilario Parikh DEPT: SURGICAL PATHOLOGY RECD BY: Angel Mitchell ENTERED: 06/25/22 10:06 SP TYPE: PROST BX KAREN DR: Dr. Terence Joyce DO Tissues: A - PROSTATE RIGHT B - PROSTATE RIGHT C - PROSTATE RIGHT D - PROSTATE LEFT E - PROSTATE LEFT F - PROSTATE LEFT Procedures: PROSTATE BX HEADER OPERATION: Prostate biopsy PRE-OP DIAGNOSIS: Elevated PSA TISSUE SUBMITTED: A - Right apex, B - Right mid, C - Right base, D - Left apex, E - Left mid, F - Left base MICROSCOPIC DIAGNOSIS A. Right prostate, apex, core biopsy: Prostatic tissue, negative for malignancy. B. Right prostate, mid, core biopsy: Prostatic tissue, negative for malignancy. C. Right prostate, base, core biopsy: Prostatic tissue, negative for malignancy. D. Left prostate, apex, core biopsy: Prostatic tissue, negative for malignancy. E. Left prostate, mid, core biopsy: Focal high-grade prostatic intraepithelial neoplasia (HGPIN). See comment. F. Left prostate, base, core biopsy: Focal high-grade prostatic intraepithelial neoplasia (HGPIN). Focal mild chronic inflammation. See comment. SJ:rg 06/26/2022 COMMENT E. Immunohistochemistry ([id number]) supports the above diagnosis. F. Immunohistochemistry ([id number]) is noncontributory, as area of HGPIN is not present in the IHC slides. Case has been reviewed in consultation with Dr. Her who concurs with the above diagnosis. IDC:AM MICROSCOPIC DESCRIPTION Slides are reviewed. GROSS DESCRIPTION A - Received is one container designated prostate, right apex. The specimen consists of one elongated fragment of light stallings-white soft tissue measuring 1.5 cm in length and 0.1 cm in diameter. The specimen is totally submitted in one cassette. B - Received is one container designated prostate, right mid. The specimen consists of two elongated fragments of light stallings-white soft tissue each measuring 1.1 cm in length and 0.1 cm in diameter. The specimen is totally submitted in one cassette. C - Received is one container designated prostate, right base. The specimen consists of two elongated fragments of light stallings-white soft tissue each measuring 1.1 cm in length and 0.1 cm in diameter. The specimen is totally submitted in one cassette. D - Received is one container designated prostate, left apex. The specimen consists of one elongated fragment of light stallings-white soft tissue measuring 1.3 cm in length and 0.1 cm in diameter. The specimen is totally submitted in one cassette. E - Received is one container designated prostate, left mid. The specimen consists of two elongated fragments of light stallings-white soft tissue each measuring 1.1 cm in length and 0.1 cm in diameter. The specimen is totally submitted in one cassette. F - Received is one container designated prostate, left base. The specimen consists of two elongated fragments of light stallings-white soft tissue each measuring 1.2 cm in length and 0.1 cm in diameter. The specimen is totally submitted in one cassette. / SJ:rg 06/25/2022 TC:5 CPT: G0146
== END | disposition home or self-care (01) ==
LOC: LABSPEC 16:36
PROVIDERS: PCP Family Medicine; Referring Provider Urology; Visit Provider Urology
DX: R97.20 Elevated prostate specific antigen [PSA] (principal)
CPT/HCPCS: 88305; 88341; 88342; G0416

== ENCOUNTER → 2023-02-07 | Outpatient (CLI) | payer SELFPAY, OTHER ==
--- NOTE | 2023-02-07 08:14 | MRI_ITS ---
STUDY: MR PROSTATE GLAND/ PELVIS WITH T WITHOUT CONTRAST REASON FOR EXAM: Male, 72 years old. ELEVATED PSA,,PRIOR NEG BX,PSA 9.8 TECHNIQUE: Standardized fat and water weighted pulse sequences were obtained in all 3 orthogonal planes, pre-and post contrast administration. IV 15ml clariscan was administered for the contrast portion of the examination. COMPARISON: Prior comparison studies are not available for review at this time. FINDINGS: Prostate gland volume/size: 5.93 x 4.54 x 4.23 cm, which is mildly enlarged. Anterior fibromuscular stroma: Normal Peripheral zone: Diffusely heterogeneous and nodular. Central zone: Diffusely heterogeneous and nodular. Transitional zone: Diffusely heterogeneous and nodular. There are 2 lobular intermediate to low signal nodules at the anterior lateral aspect of the right peripheral zone (measuring 1.11 cm) and in the central aspect of the left transitional zone measuring 1.51 cm in diameter, that also demonstrate abnormal diffusion weighted signal and mild to moderate enhancement which is suspicious and concerning for malignancy. The remaining findings are most likely due to benign prostate hyperplasia or nonspecified prostatitis. Prostate capsule: Intact Seminal vesicles: Normal Pelvic sidewall lymphadenopathy: No abnormal lymphadenopathy is present Bony structures: No demonstrated lytic or blastic lesions of the bony structures Normal urinary bladder. Normal visualized small intestine. There are multiple colonic diverticula of the sigmoid colon consistent with chronic diverticulosis. There is no pelvic fluid. There is no pelvic mass lesion or lymphadenopathy. Unremarkable osseous structures. Normal abdominal wall. Small bilateral testicular hydroceles are present, right greater than left. MRI/Pelvis W/WO Contrast IMPRESSION: 1. There are 2 lobular intermediate to low signal nodules at the anterior lateral aspect of the right peripheral zone (measuring 1.11 cm) and in the central aspect of the left transitional zone measuring 1.51 cm in diameter, that also demonstrate abnormal diffusion weighted signal and mild to moderate enhancement which is suspicious and concerning for malignancy. 2. PI-RADS 4: high (clinically significant cancer is likely to be present) 3. The remaining findings are most likely due to benign prostate hyperplasia or nonspecified prostatitis. Reference information: Normal prostate tissue Benign prostatic hypertrophy cancer/tumor - low signal peripheral , transitional, and central zones malignancy appears as bright on DWI and low signal on ADC map Prostate imaging-reporting and data system (PI-RADS) PI-RADS 1: very low (clinically significant cancer is highly unlikely to be present) PI-RADS 2: low (clinically significant cancer is unlikely to be present) PI-RADS 3: intermediate (the presence of clinically significant cancer is equivocal) PI-RADS 4: high (clinically significant cancer is likely to be present) PI-RADS 5: very high (clinically significant cancer is highly likely to be present) PI-RADS X: component of exam technically inadequate or not performed Prostate malignancy distribution: Peripheral zone: 70-80% Transitional zone: 10-20% Central zone: 5% or less Electronically Signed: Fortino Hallman MD at 15:49 EDT ,
[2023-02-07 08:43] LABS: EGFR FINGERSTICK > 60.0000 mL/min (>60)
== END | disposition home or self-care (01) ==
LOC: MRI 07:50
PROVIDERS: PCP Family Medicine; Referring Provider Urology; Visit Provider Urology
DX: R97.20 Elevated prostate specific antigen [PSA] (principal)
CPT/HCPCS: 72197; A9575

== ENCOUNTER → 2023-03-24 | Outpatient (CLI) | payer OTHER, SELFPAY ==
--- NOTE | 2023-03-24 | PROSBIL_PTH ---
PATIENT: RAJIV WORTHY LOC: [facility] U#:[id number] AGE/SX: 72/M ROOM: RE03/24/[address]: Dr. Hilario Parikh MD : 1950 BED: DIS: 03/24/2023 SPEC #: [id number] RECD: 03/25/23 08:22 STATUS: CINDY REJosie #: [id number] ALBA: 03/24/23 00:[address]: Hilario Parikh DEPT: SURGICAL PATHOLOGY RECD BY: Angel Mitchell ENTERED: 03/25/23 08:23 SP TYPE: PROST BX KAREN DR: Dr. Terence Joyce DO Tissues: A - PROSTATE RIGHT B - PROSTATE RIGHT C - PROSTATE RIGHT D - PROSTATE LEFT E - PROSTATE LEFT F - PROSTATE LEFT Procedures: PROSTATE BX HEADER OPERATION: Prostate biopsy PRE-OP DIAGNOSIS: Elevated PSA TISSUE SUBMITTED: A - Right apex, B - Right mid, C - Right base, D - Left apex, E - Left mid, F - Left base MICROSCOPIC DIAGNOSIS A. Right prostate, apex, core biopsy: Benign prostatic tissue. B. Right prostate, mid, core biopsy: Minimal chronic inflammation. C. Right prostate, base, core biopsy: Focal high-grade prostatic intraepithelial neoplasia (HGPIN). D. Left prostate, apex, core biopsy: Mild chronic inflammation. E. Left prostate, mid, core biopsy: Chronic inflammation and focal glandular atrophy. F. Left prostate, base, core biopsy: Focal benign stromal hyperplasia. Minimal chronic inflammation. AM:bridget 03/26/2023 MICROSCOPIC DESCRIPTION Slides are reviewed. GROSS DESCRIPTION A - Received is one container designated prostate, right apex. The specimen consists of one elongated fragment of light stallings-white soft tissue measuring 1.0 cm in length and 0.1 cm in diameter. The specimen is totally submitted in one cassette. B - Received is one container designated prostate, right mid. The specimen consists of two elongated fragments of light stallings-white soft tissue each measuring 1.0 cm in length and 0.1 cm in diameter. The specimen is totally submitted in one cassette. C - Received is one container designated prostate, right base. The specimen consists of two elongated fragments of light stallings-white soft tissue each measuring 1.0 cm in length and 0.1 cm in diameter. The specimen is totally submitted in one cassette. D - Received is one container designated prostate, left apex. The specimen consists of two elongated fragments of light stallings-white soft tissue each measuring 1.0 cm in length and 0.1 cm in diameter. The specimen is totally submitted in one cassette. E - Received is one container designated prostate, left mid. The specimen consists of one elongated fragment of light stallings-white soft tissue measuring 1.5 cm in length and 0.1 cm in diameter. The specimen is totally submitted in one cassette. F - Received is one container designated prostate, left base. The specimen consists of one elongated fragment of light stallings-white soft tissue measuring 2.0 cm in length and 0.1 cm in diameter. The specimen is totally submitted in one cassette. / AM:bridget 03/25/2023 TC:3 CPT: 14435 x6
== END | disposition home or self-care (01) ==
LOC: LABSPEC 16:18
PROVIDERS: PCP Family Medicine; Referring Provider Urology; Visit Provider Urology
DX: R97.20 Elevated prostate specific antigen [PSA] (principal)
CPT/HCPCS: 88305; G0416

== ENCOUNTER 2024-01-13 12:42 | Emergency (ER) | payer OTHER, SELFPAY ==
[2024-01-13 12:42] VITALS: BP 134/108; PULSE 93; RESP 23; TEMP 36.7; O2SAT 100; BMI 27.9
--- NOTE | 2024-01-13 13:13 | EX.ED.DYSGE1 ---
HPI History of Present Illness Chief Complaint: Headache Narrative Narrative: Chief complaint and HPI: Bradycardia. Patient is a 73-year-old male with history of atrial fibrillation on Eliquis, CKD 3, CAD, HTN, DM2, CHF who presents for evaluation of bradycardia. History taken by patient and . Per their report patient has had a mild cough and headache for the past 5 days. He had a regular 6-month checkup with his PCP today and was found to have a pulse in the 30s. Patient was transferred to the ED via EMS. Patient denies any syncope, lightheadedness, chest pain, shortness of breath, abdominal pain, nausea, vomiting, diarrhea, dysuria, bilateral lower extremity swelling or pain. He states he feels at his baseline other than a mild headache. Review of systems: See HPI Medications: As listed on the chart Allergies: As listed on the chart PFSH: Per chart Vital signs: As listed on the chart. Reviewed. Physical exam: Gen: A&O x3, NAD Head: Normocephalic, atraumatic Eyes: No sclera icterus, conjunctiva clear ENT: Moist mucous membranes Neck: Trachea midline, No JVD CV: Irregular rhythm with irregular rate, no murmurs, no peripheral edema Resp: Lungs CTA BL, no w/r/c GI: Abd soft, non-distended, non-tender, no r/r/g Musc: Full ROM, no deformity Skin: Warm, dry Neuro: Alert, oriented, grossly intact, sensation intact Psych: Cooperative, appropriate mood and affect [facility] Medical History Nonobstructive atherosclerosis of coronary artery Longstanding persistent atrial fibrillation Hyperlipidemia Type 2 diabetes mellitus Chronic systolic (congestive) heart failure Non-ischemic cardiomyopathy New onset atrial fibrillation (09/13/19) Non-STEMI (non-ST elevated myocardial infarction) (09/13/19) Nonrheumatic aortic (valve) stenosis with insufficiency Home Medications ?Medication ?Instructions ?Recorded ?Last Taken ?Type metformin 500 mg tablet 500 mg PO BID DM 12/09/19 Unknown History omeprazole 20 mg capsule,delayed 20 mg PO DAILY 04/03/20 Unknown History release apixaban 2.5 mg tablet (Eliquis) 2.5 mg PO BID 04/06/20 Unknown History flaxseed oil 1,000 mg capsule 1,000 mg PO TID 10/27/20 Unknown History ([place]-3 Flaxseed Oil) glucosamine sulfate 500 mg tablet 500 mg PO DAILY 10/27/20 Unknown History (Glucosamine) hawthorn extract 150 mg capsule mg PO 10/27/20 Unknown History saw palmetto 500 mg capsule 500 mg PO DAILY 10/27/20 Unknown History pravastatin 40 mg tablet 40 mg PO DAILY #90 tabs 07/31/21 Unknown Rx carvedilol 6.25 mg tablet 6.25 mg PO BID #180 tabs 06/20/23 Unknown Rx lisinopril 2.5 mg tablet 2.5 mg PO DAILY #90 tabs 06/20/23 Unknown Rx Allergy/AdvReac Type Severity Reaction Status Date / Time No Known Allergies Allergy Verified 01/13/24 12:56 Surgical History History of left heart catheterization (09/15/19) Social History Smoking Status: Never smoker EXAM Physical Exam Const Vital Signs: 01/13/24 12:42 01/13/24 14:56 01/13/24 16:00 Temperature 98.0 F 96.8 F L Temperature Source Oral Oral Pulse Rate 93 89 94 Respiratory Rate 23 H 24 H 24 H Blood Pressure 134/108 H 136/75 H 130/89 H Blood Pressure Mean 116 95 102 Pulse Ox 100 97 94 Oxygen Delivery Method Room Air Room Air Room Air MDM MDM MDM Narrative Medical decision making narrative: 73-year-old gentleman with significant cardiac history presents for evaluation of bradycardia. Patient was found to have a heart rate in the 30s at his doctor's appointment today. On arrival here patient has a heart rate into the 90s with blood pressure 134/108. He was throwing multiple PVCs. I suspect that patient may have had bradycardia secondary to the PVCs. Patient is currently asymptomatic other than a mild headache. Differential diagnosis includes but is not limited to bradycardia, arrhythmia, mechanical error, electrolyte abnormality, CHF exacerbation, CAD. Cardiac workup ordered. CBC without leukocytosis or anemia. BMP shows baseline CKD with creatinine of 1.76. BNP mildly elevated at 166.9. Patient has not fluid overloaded on exam. Troponin unremarkable x 2. On reexamination, patient is asymptomatic. Again I feel that the patient's bradycardia was not real and instead the machine was not picking up his PVCs. Patient takes carvedilol 6.25 mg twice daily, Eliquis, as well as lisinopril 2.5 daily. Given his increase in PVCs, cardiology was consulted and patient was discussed. I spoke with Dr. Samuel. No medication changes at this time. Patient is stable to discharge home. Patient and family updated mother is also confirmed understand the plan. They were told to follow-up with their PCP. Patient was also educated to follow-up with his beer maker. He confirmed understand the plan. EKG: Interpreted by me/EM physician: EKG shows atrial fibrillation with possible bigeminy. Heart rate 90. No acute ischemic changes. EKG was compared to previous EKG and patient has a known history of A-fib and PVCs. Diagnostic: Interpreted by me/EM physician: Chest x-ray without effusion, pneumothorax, pneumonia. Impression: 1. Frequent PVCs 2. Headache Lab Data Labs: Laboratory Results - last 24 hr 01/13/24 01/13/24 12:57 15:51 WBC 8.2 RBC 4.22 L Hgb 13.0 Hct 39.7 L MCV 94.1 H MCH 30.8 MCHC 32.7 RDW Std Deviation 46.3 H RDW Coeff of Jamshid 13.4 Plt Count 261 MPV 10.7 Immature Gran % (Auto) 2.000 H Neut % (Auto) 68.0 Lymph % (Auto) 18.8 L [place] % (Auto) 8.7 Eos % (Auto) 2.1 Baso % (Auto) 0.4 Absolute Neuts (auto) 5.6 Absolute Lymphs (auto) 1.54 Nucleated RBC % 0 Sodium 134 L Potassium 4.2 Chloride 103 Carbon Dioxide 21.0 Anion Gap 10 BUN 38 H Creatinine 1.76 H Estim Creat Clear Calc 39.32 Est GFR (MDRD) Af Amer 49 L Est GFR (MDRD) Non-Af 41 L BUN/Creatinine Ratio 21.6 H Glucose 136 H Calcium 9.8 Troponin I High Sens 19 16 B-Natriuretic Peptide 166.9 H Radiography Diagnostic Testing: Clinical Impression(s) from Imaging Studies Chest X-Ray 01/13/24 13:20 IMPRESSION: Cardiomegaly. The lungs are clear. Electronically Signed: Reji Jacobo MD at 14:02 EDT , Discharge Plan Triage Chief Complaint: Headache ED Provider: Madi Kam Dx/Rx/DC Orders Clinical Impression: Frequent PVCs Instructions: PVCs Prescriptions: No Action omeprazole 20 mg capsule,delayed release(DR/EC) 20 mg PO DAILY flaxseed oil [[place]-3 Flaxseed Oil] 1,000 mg capsule 1,000 mg PO TID Rx Instructions: administer with meals glucosamine sulfate [Glucosamine] 500 mg tablet 500 mg PO DAILY Rx Instructions: administer with a meal hawthorn extract 150 mg capsule PO saw palmetto 500 mg capsule 500 mg PO DAILY Rx Instructions: give with food (meal/snack) pravastatin 40 mg tablet 40 mg PO DAILY Qty: 90 3RF metformin 500 mg tablet 500 mg PO BID Eliquis 2.5 mg tablet 2.5 mg PO BID carvedilol 6.25 mg tablet 6.25 mg PO BID Qty: 180 3RF lisinopril 2.5 mg tablet 2.5 mg PO DAILY Qty: 90 3RF Primary Care Provider: Terence Joyce Referrals: Terence Joyce DO [Primary Care Provider] - 3-5 Days Activity Restrictions/Additional Instructions: Follow-up with your beer maker as soon as possible. Print Language: Portuguese Disposition Disposition: Home, Self Care
--- NOTE | 2024-01-13 13:20 | RAD_ITS ---
STUDY: X-RAY CHEST REASON FOR EXAM: Male, 73 years old. Arrhythmia TECHNIQUE: Single AP portable view of the chest. COMPARISON: Comparison is made with prior study September 13, 2019. FINDINGS: EKG electrodes are seen. The lungs are clear and expanded. There is no demonstrated pleural abnormality. There is mild cardiac enlargement. Normal mediastinum and candelario. Normal visualized pulmonary arteries. Normal visualized aortic arch and descending thoracic aorta. There are diffuse degenerative changes of the visualized thoracic spine. Normal visualized ribs, clavicles, and shoulders. Hiatal hernia. RAD/Chest 1 View (Portable) IMPRESSION: Cardiomegaly. The lungs are clear. Electronically Signed: Reji Jacobo MD at 14:02 EDT ,
[2024-01-13 13:24] LABS: Absolute Lymphocyte Count 1.54 X10^3/uL (0.83-4.51); Absolute Neutrophil Count 5.6 X10^3/uL (2.0-7.7); Basophil# 0.03 X10^3/uL; Basophil% 0.4 % (0-1); Eosinophil# 0.17 X10^3/uL; Eosinophils% 2.1 % (0-5); Hematocrit 39.7 % (40-54); Lymphocyte # 1.54 X10^3/ul (0.83-4.51); Lymphocyte % 18.8 % (19-41); Mean Corp Hgb Conc 32.7 g/dL (32-36); Mean Corpuscular Hgb 30.8 pg (27.0-32.0); Mean Corpuscular Volume 94.1 fL (80-94); Mean Platelet Vol. 10.7 fl (6.2-12.0); Monocyte# 0.71 X10^3/uL; Monocyte% 8.7 % (0-10); NRBC Flagged by Analyzer 0 % (0-5); Neutrophil # 5.57 X10^3/uL (2.7-7.7); Platelet Count 261 K/mm3 (150-450); RBC Distribution Width CV 13.4 % (11.6-14.6); RBC Distribution Width SD 46.3 fl (35.1-43.9); Red Blood Count 4.22 M/mm3 (4.6-6.2); White Blood Count 8.2 K/mm3 (4.4-11.0)
[2024-01-13 13:50] LABS: Anion Gap 10 (5-15); BUN 38 mg/dL (7-18); BUN/Creat Ratio 21.6 RATIO (10-20); Calcium,Total 9.8 mg/dL (8.5-10.1); Chloride 103 mmol/L (98-107); Creatinine, Serum 1.76 mg/dL (0.70-1.30); EST Glomerular Filtration Rate 41 mL/min (>60); Est Glom Filt Rate - Afr Amer 49 mL/min (>60); Estimated Creatinine Clearance 39.32 ml/min; Glucose 136 mg/dL (74-106); Potassium 4.2 mmol/L (3.5-5.1); Sodium Level 134 mmol/L (136-145); Troponin-I HS (w/2H Reflex) 19 pg/mL (3.0-78.0)
[2024-01-13 13:52] LABS: BNP,B-Type NATRIURETIC PEPTIDE 166.9 pg/mL (0-100)
[2024-01-13 14:56] VITALS: BP 136/75; PULSE 89; RESP 24; TEMP 36; O2SAT 97
[2024-01-13 15:16] LABS: Reflex Troponin-HS? (from REC) Y
[2024-01-13 16:00] VITALS: BP 130/89; PULSE 94; RESP 24; O2SAT 94
[2024-01-13 16:13] LABS: Troponin-I HS 16 pg/mL (3.0-78.0)
[2024-01-13 16:42] VITALS: BP 142/78; PULSE 78; RESP 18; TEMP 36.7; O2SAT 97
== END 2024-01-13 16:43 | disposition home or self-care (01) ==
PROVIDERS: Emergency Provider Surgery; PCP Family Medicine; Visit Provider Surgery
DX: I49.3 Ventricular premature depolarization (principal); I13.0 Hypertensive heart and chronic kidney disease with heart failure and stage 1 through stage 4 chronic kidney disease, or unspecified chronic kidney disease; I50.22 Chronic systolic (congestive) heart failure; I48.11 Longstanding persistent atrial fibrillation; E11.22 Type 2 diabetes mellitus with diabetic chronic kidney disease; N18.30 Chronic kidney disease, stage 3 unspecified; R51.9 Headache, unspecified; E78.5 Hyperlipidemia, unspecified; I25.2 Old myocardial infarction; I35.2 Nonrheumatic aortic (valve) stenosis with insufficiency; I25.10 Atherosclerotic heart disease of native coronary artery without angina pectoris; Z79.01 Long term (current) use of anticoagulants; Z79.84 Long term (current) use of oral hypoglycemic drugs; Z79.899 Other long term (current) drug therapy
CPT/HCPCS: 71045; 80048; 83880; 84484; 85025; 93005; 99284

== ENCOUNTER → 2024-01-16 | Outpatient (CLI) | payer OTHER, SELFPAY ==
[2024-01-16 17:44] LABS: T4 Free Direct 1.09 ng/dL (0.76-1.46)
== END | disposition home or self-care (01) ==
LOC: LAB 15:56
PROVIDERS: PCP Family Medicine; Referring Provider Nurse Practitioner Family; Visit Provider Nurse Practitioner Family
DX: I49.3 Ventricular premature depolarization (principal); I42.8 Other cardiomyopathies
CPT/HCPCS: 36415; 83735; 84439; 84443

== ENCOUNTER → 2024-01-28 | Outpatient (CLI) | payer OTHER, SELFPAY | END | disposition home or self-care (01) | LOC: PSN 08:09 | PROVIDERS: PCP Family Medicine; Referring Provider Nurse Practitioner Family; Visit Provider Nurse Practitioner Family | DX: I49.3 Ventricular premature depolarization (principal); I48.11 Longstanding persistent atrial fibrillation; I42.8 Other cardiomyopathies | CPT/HCPCS: 93225; 93226 ==

== ENCOUNTER → 2024-04-23 | Outpatient (CLI) | payer OTHER, SELFPAY ==
--- NOTE | 2024-04-23 08:40 | EKG12_ITS ---
Test Reason : PREOP Blood Pressure : */* mmHG Vent. Rate : 76 BPM Atrial Rate : 416 BPM P-R Int : * ms QRS Dur : 72 ms QT Int : 368 ms P-R-T Axes : * -35 44 degrees QTcB Int : 414 ms Atrial fibrillation with premature ventricular or aberrantly conducted complexes Left axis deviation Septal infarct (cited on or before 13-Jan-2024) Inferior infarct (cited on or before 13-Jan-2024) Abnormal ECG When compared with ECG of 13-Jan-2024 13:00, Previous ECG has undetermined rhythm, needs review ST now depressed in Inferior leads Confirmed by WILTON LESLIE MD ([id number]), news videotape editor NENA ALLEN ([id number]) on 04/23/2024 2:05:19 PM Referred By: Hilario Parikh Confirmed By: WILTON LESLIE MD
[2024-04-23 09:19] LABS: Hematocrit 35.1 % (40-54); Hemoglobin 11.5 g/dL (13.0-16.5); Mean Corp Hgb Conc 32.8 g/dL (32-36); Mean Corpuscular Hgb 30.5 pg (27.0-32.0); Mean Corpuscular Volume 93.1 fL (80-94); Mean Platelet Vol. 10.4 fl (6.2-12.0); Platelet Count 286 K/mm3 (150-450); RBC Distribution Width CV 13.2 % (11.6-14.6); RBC Distribution Width SD 45.1 fl (35.1-43.9); Red Blood Count 3.77 M/mm3 (4.6-6.2)
[2024-04-23 09:47] LABS: Anion Gap 9 (5-15); BUN 24 mg/dL (7-18); BUN/Creat Ratio 18.8 RATIO (10-20); Calcium,Total 9.6 mg/dL (8.5-10.1); Chloride 108 mmol/L (98-107); Creatinine, Serum 1.28 mg/dL (0.70-1.30); EST Glomerular Filtration Rate 59 mL/min (>60); Est Glom Filt Rate - Afr Amer 71 mL/min (>60); Glucose 168 mg/dL (74-106); Potassium 4.5 mmol/L (3.5-5.1); Sodium Level 137 mmol/L (136-145)
== END | disposition home or self-care (01) ==
PROVIDERS: PCP Family Medicine; Referring Provider Urology; Visit Provider Urology
DX: Z01.810 Encounter for preprocedural cardiovascular examination (principal)
CPT/HCPCS: 36415; 80048; 85027; 93005

== ENCOUNTER → 2024-05-14 | Outpatient (CLI) | payer OTHER, SELFPAY ==
--- NOTE | 2024-05-14 07:30 | PROSBIL_PTH ---
PATIENT: RAJIV WORTHY LOC: [facility] U#:[id number] AGE/SX: 73/M ROOM: RE05/14/[address]: Dr. Hilario Parikh MD : 1950 BED: DIS: 05/14/2024 SPEC #: [id number] RECD: 05/14/24 15:00 STATUS: CINDY BARBA #: [id number] ALBA: 05/14/24 07:[address]: Hilario Parikh DEPT: SURGICAL PATHOLOGY RECD BY: Muriel Campos ENTERED: 05/17/24 10:41 SP TYPE: PROST BX KAREN DR: Dr. Terence Joyce DO Tissues: A - PROSTATE RIGHT B - PROSTATE RIGHT C - PROSTATE RIGHT D - PROSTATE LEFT E - PROSTATE LEFT F - PROSTATE LEFT Procedures: PROSTATE BX HEADER OPERATION: Prostate biopsy PRE-OP DIAGNOSIS: Benign prostatic hyperplasia with lower urinary tract symptoms, elevated PSA TISSUE SUBMITTED: A - Right base, B - Right mid, C - Right apex, D - Left base, E - Left mid, F - Left apex MICROSCOPIC DIAGNOSIS A. Right prostate, base, core biopsy: Prostatic tissue, negative for malignancy. B. Right prostate, mid, core biopsy: Prostatic tissue, negative for malignancy. Chronic inflammation. C. Right prostate, apex, core biopsy: Prostatic tissue, negative for malignancy. Chronic inflammation. D. Left prostate, base, core biopsy: Prostatic tissue, negative for malignancy. E. Left prostate, mid, core biopsy: Prostatic tissue, negative for malignancy. Chronic inflammation. F. Left prostate, apex, core biopsy: Prostatic tissue, negative for malignancy. 05/18/2024 MICROSCOPIC DESCRIPTION Slides are reviewed. GROSS DESCRIPTION A - Received is one container designated prostate, right base. The specimen consists of two elongated fragments of light stallings-white soft tissue measuring 0.7 and 2 cm in length and 0.1 cm in diameter. The specimen is totally submitted in one cassette. B - Received is one container designated prostate, right mid. The specimen consists of two elongated fragments of light stallings-white soft tissue measuring 0.9 and 1.3 cm in length and 0.1 cm in diameter. The specimen is totally submitted in one cassette. C - Received is one container designated prostate, right apex. The specimen consists of two elongated fragments of light stallnigs-white soft tissue each measuring 1 cm in length and 0.1 cm in diameter. The specimen is totally submitted in one cassette. D - Received is one container designated prostate, left base. The specimen consists of two elongated fragments of light stallings-white soft tissue measuring 1.2 and 1.5 cm in length and 0.1 cm in diameter. The specimen is totally submitted in one cassette. E - Received is one container designated prostate, left mid. The specimen consists of two elongated fragments of light stallings-white soft tissue measuring 1.2 and 1.6 cm in length and 0.1 cm in diameter. The specimen is totally submitted in one cassette. F - Received is one container designated prostate, left apex. The specimen consists of three elongated fragments of light stallings-white soft tissue each measuring 1 to 1.6 cm in length and 0.1 cm in diameter. The specimen is totally submitted in one cassette. / GEMA. 05/17/2024 TC:3 CPT: 27750 x6
== END | disposition home or self-care (01) ==
LOC: LABSPEC 15:55
PROVIDERS: PCP Family Medicine; Referring Provider Urology; Visit Provider Urology
DX: N40.1 Benign prostatic hyperplasia with lower urinary tract symptoms (principal); R97.20 Elevated prostate specific antigen [PSA]
CPT/HCPCS: 88305; G0416